=== PATIENT | female | born 1970 | race Caucasian/White ===

== ENCOUNTER 2019-02-06 10:03 | Inpatient (IN) ==
[2019-02-06 11:15] LABS: BASO# 0.02 X1000 (0.0-0.2); BASO% 0.2 % (0.0-0.8); EOS# 0.01 X1000 (0.0-0.7); EOS% 0.1 % (0.0-10.0); HEMATOCRIT 32.4 % (37.0-47.0); HEMOGLOBIN 9.6 g/dL (12.0-16.0); IMM GRAN# 0.05 X1000 (0.0-0.04); IMM GRAN% 0.5 % (0.0-0.5); LYMPH# 1.04 X1000 (1.2-3.4); LYMPH% 9.9 % (20.5-51.1); MCH 27.6 PG (27-31); MCHC 29.6 g/dL (33-37); MCV 93.1 FL (81-99); MONO# 0.51 X1000 (0.11-0.59); MONO% 4.9 % (1.7-9.3); MPV 8.5 FL (7.4-10.4); NEUT# 8.85 X1000 (1.4-6.5); NEUT% 84.4 % (42.2-75.2); PLT 487 X1000 (130-400); RBC 3.48 XMIL (4.2-5.4); WBC 10.48 X1000 (4.8-10.8)
--- NOTE | 2019-02-06 11:18 | EKG Report ---
Test Performed on : 02/06/2019 10:40:53 AM Test Reason : ams Blood Pressure : / mmHG Vent. Rate : 075 BPM Atrial Rate : 075 BPM P-R Int : 146 ms QRS Dur : 088 ms QT Int : 408 ms P-R-T Axes : 056 -43 024 degrees QTc Int : 455 ms Normal sinus rhythm. Left axis deviation Possible Anterior infarct , age undetermined Abnormal ECG No previous ECGs available Unconfirmed Result
[2019-02-06] MEDS ORDERED: NS 1,000 ML IV ONE (11:20)
[2019-02-06] MEDS ORDERED: ZOFRAN IV ONE (11:20)
[2019-02-06 11:29] LABS: URINE SOURCE CATH
[2019-02-06 11:31] LABS: INR 1.24; PROTIME 15.8 Seconds (11.0-16.0)
[2019-02-06 11:31] LABS: BILIRUBIN URINE SMALL (NEGATIVE); BLOOD URINE MODERATE (NEGATIVE); COLOR YELLOW; GLUCOSE URINE NEGATIVE (NEGATIVE); KETONE URINE TRACE mg/dL (NEGATIVE); LEUKOCYTES URINE LARGE (NEGATIVE); NITRITE URINE NEGATIVE (NEGATIVE); PH URINE 8.5; PROTEIN URINE 70 mg/dL (NEGATIVE); SP GRAVITY URINE 1.022; TURBIDITY URINE HAZY (CLEAR); UROBILINOGEN URINE 3 mg/dL (NORMAL)
[2019-02-06 11:32] LABS: PTT 29.4 Seconds (22.3-41.8)
[2019-02-06 11:33] LABS: AGAP 14; ALB/GLOB RATIO 1.2; ALBUMIN 2.6 g/dL (3.5-5.0); ALKALINE PHOSPHATASE 156 U/L (32-104); BUN 11 mg/dL (8-22); CHLORIDE 100 mmol/L (98-107); CK PROFILE 22 U/L (24-173); COSMO 282; CREATININE 0.4 mg/dL (0.5-0.9); ESTIMATED GFR > 60; GLUCOSE 91 mg/dL (70-104); GOT 31 U/L (10-30); GPT 13 U/L (10-36); POTASSIUM 2.7 mmol/L (3.5-5.1); SODIUM 142 mmol/L (136-145); TCO2 28 mmol/L (25-35); TOTAL BILIRUBIN 0.23 mg/dL (0.20-1.00); TOTAL PROTEIN 4.8 g/dL (6.3-8.3)
--- NOTE | 2019-02-06 11:35 | Diag Imaging Result Doc PS360 ---
CHEST-PORTABLE - 02/06/2019 INDICATION: ams COMPARISON: 11/06/2014 FINDINGS: The lungs are normally expanded and clear. Heart size and mediastinal contours are normal. No pneumothorax or pleural effusion. There is a shunt catheter tubing along the right body extending down into the abdomen. IMPRESSION: Negative exam. Electronically signed by Cullen Arteaga 02/06/2019 11:33 AM
[2019-02-06 11:39] LABS: UR EPITHELIAL CELLS <10 /HPF (<10); URINE BACTERIA 4+ /HPF; URINE RBC <10 /HPF (<10); URINE WBC TNTC /HPF (<10)
--- NOTE | 2019-02-06 12:28 | Diag Imaging Result Doc PS360 ---
EXAM: CT HEAD W/O CONTRAST INDICATION: Head injury TECHNIQUE: This exam was performed using automated exposure control, adjustment of mA or kV according to patient size, and/or use of iterative reconstruction technique. COMPARISON: None. FINDINGS: There is a large anterior craniotomy defect on the left. There is a vascular aneurysm coil in the region of the suprasellar cistern on the left. There is extensive left hemispheric encephalomalacia involving the temporal, frontal, and occipital lobes. There is milder right frontal lobe encephalomalacia. There is a right posterior approach CP shunt catheter. The tip is in the anterior aspect of the right lateral ventricle. There is no evidence of hydrocephalus. There is no definite acute infarct given the limited sensitivity of CT versus MRI. There is no discrete intracranial mass, mass effect, or intracranial hemorrhage. Aside from the postsurgical changes, the calvaria is intact. Surrounding soft tissues and bony structures are grossly unremarkable, otherwise. IMPRESSION: Extensive chronic changes as detailed above. No definite acute intracranial pathology by CT. Electronically signed by German Abbott 02/06/2019 12:26 PM
--- NOTE | 2019-02-06 12:29 | Diag Imaging Result Doc PS360 ---
EXAM: CT ABD/PELVIS W/IV CONT ONLY INDICATION: epigastric abdo pain TECHNIQUE: This exam was performed using automated exposure control, adjustment of mA or kV according to patient size, and/or use of iterative reconstruction technique. COMPARISON: None. FINDINGS: There is moderate to extensive hepatic steatosis. The gallbladder, spleen, and pancreas are unremarkable. There is mild low dense adrenal gland thickening likely representing underlying adenomas. There are a few tiny renal cysts bilaterally. There is no evidence of hydronephrosis. The kidneys are unremarkable, otherwise. There is a very large calcified stone in the lumen of the urinary bladder on the right measuring up to 2.8 cm axially. This is likely been in the bladder for some time. The urinary bladder is unremarkable, otherwise. There has been a prior hysterectomy. There is a [employer] shunt catheter with the tip in the left lower quadrant. There are no abnormal fluid collections identified. There is mild uncomplicated diverticulosis coli. The appendix is normal. There is abundant stool in the colon suggesting possible mild to moderate constipation. There is no obstructive bowel pattern. The antrum of the stomach in the duodenal bulb appear mildly thickened. Consider gastritis/duodenitis. Peptic ulcer disease is also a consideration. The remainder of the GI tract is grossly unremarkable. No free abdominal gas is appreciated. There is moderate distal aortic atherosclerotic calcification. There are lumbar degenerative changes. There is no evidence of acute osseous abnormality. IMPRESSION: 1.Suggestion of subtle thickening involving the antrum of the stomach and the duodenal bulb. Consider gastritis/duodenitis or peptic ulcer disease. 2.Hepatic steatosis. 3.Very large urinary bladder stone noted incidentally. 4.Possible constipation. Electronically signed by German Abbott 02/06/2019 12:26 PM
[2019-02-06] MEDS ORDERED: POTASSIUM CHLORIDE 40 MEQ in NS 1,000 ML IV ONE (12:56)
[2019-02-06] MEDS ORDERED: PROTONIX IV ONE (12:56)
--- NOTE | 2019-02-06 12:56 | PROVIDER DOCUMENTATION ---
This chart was entered by Juliana Epps Scribe, acting as scribe for Jorge Cancino MD. HPI-General Adult - General Chief Complaint: Altered Mental Status Stated Complaint: AMS, N/V Time Seen by Provider: 02/06/19 11:04 Source: patient, family (mother) Allergies/Adverse Reactions: Patient Allergies Allergy/AdvReac Type Severity Reaction Status Date / Time latex Allergy RASH Verified 11/17/17 15:58 morphine Allergy RASH Verified 11/17/17 15:58 Home Medications: Home Medication List Medication Instructions Recorded Confirmed Last Taken Type Amlodipine [Norvasc] 10 mg PO DAILY 02/06/19 02/06/19 Unknown History Diclofenac Potassium 50 mg PO Q8H PRN PRN 02/06/19 02/06/19 Unknown History Methocarbamol 750 mg PO TID 02/06/19 02/06/19 Unknown History Pramipexole Di-HCl [Mirapex] 1 mg PO DAILY 02/06/19 02/06/19 Unknown History Quetiapine Fumarate [Seroquel] 300 mg PO HS 02/06/19 02/06/19 Unknown History Sertraline HCl [Zoloft] 150 mg PO DAILY 02/06/19 02/06/19 Unknown History - History of Present Illness -Gen Adult Nature of Presenting Problems: Patient is a 48 year old female who presents to the ED with multiple complaints. States symptoms of nausea, vomiting, loss of appetite, weakness, fatigue, weight loss, diarrhea, confusion, dysuria and urinary frequency. Reports sympto ms started 1 week ago. Mother states patient had a brain aneurysm 2 years ago. Location of Pain/Injury: reports: none Quality of Pain: reports: none Severity: reports: mild Onset/Duration: reports: 1 week ago Timing: reports: still present Context/Activities at Onset: reports: light activity Associated Symptoms: reports: diarrhea, fatigue, genitourinary problems (dysuria and frequency), loss of appetite, nausea, vomiting, weakness, other (weight loss and confusion) Similar Symptoms Previously?: Yes Recently seen or treated by another doctor?: No Review of Systems - Adult - REVIEW OF SYSTEMS - ADULT Constitutional: reports: see HPI, fatique, weight loss. denies: chills, fever Eyes: reports: no symptoms reported Ears, Nose, Mouth & Throat: reports: no symptoms reported Cardiovascular: reports: no symptoms reported Respiratory: reports: no symptoms reported Gastrointestinal: reports: see HPI, nausea, poor appetite, vomiting Genitourinary: reports: see HPI, dysuria, frequency. denies: hematuria Musculoskeletal: reports: see HPI, muscle weakness. denies: back pain, neck pain Integumentary: reports: no symptoms reported Neurological: reports: see HPI, other (AMS - confusion). denies: headach e/migraines, syncope Psychiatric: reports: no symptoms reported Endocrine: reports: no symptoms reported Hematologic/Lymphatic: reports: no symptoms reported Allergic/Immunologic: reports: no symptoms reported All Other Systems: Reviewed and Negative Past History - Adult - PAST MEDICAL HISTORY-ADULT Review of Records: reports: Old Records Reviewed, Nursing Assessment Review, Medications Reviewed, Social history reviewed & non-contributory. Major Childhood Illnesses: reports: denies history Cardiovascular: reports: HTN Respiratory: reports: asthma Gastrointestinal: reports: denies history Obstetrical/Gynecological: reports: denies history Genitourinary: reports: denies history Musculoskeletal: reports: denies history, other fractures, orthopedic injury Neurological: reports: other (brain aneurysm 2017) Psychiatric: reports: denies history Endocrine/Immune: reports: denies history Other Conditions: reports: denies history - PRIOR SURGERIES/PROCEDURES Surgical/Procedure History: reports: hysterectomy, tonsillectomy, orthopedic (extremity) - IMMUNIZATION STATUS Childhood Immunizations: See Nurse Assessment Flu Vaccine: See Nurse Assessment - FAMILY HISTORY Family History: reviewed, not pertinent - SOCIAL HISTORY Smoking: cigarettes, greater than 1 pack/day Provider spent 3-5 mins advising pt. on dangers of tobacco.: Discussed manners to quit use, and f/u contacts for add'l counseling. Substance Use: denies Living Situation: family Physical Exam-General - PHYSICAL EXAM-ADULT Initial Vital Signs Reviewed: Yes - CONSTITUTIONAL General Appearance: alert, no apparent distress, thin. negative: lethargic - HEAD, EARS, NOSE, MOUTH & THROAT HENMT: normocephalic/atraumatic, other (dry mucous membranes). negative: angioedema - RESPIRATORY Respiratory: chest non-tender, lungs clear, normal breath sounds. negative: crackles, rhonchi - CARDIOVASCULAR Cardiovascular: normal peripheral pulses, regular rate, rhythm. negative: tachycardia - GASTROINTESTINAL (ABDOMEN) Abdominal Exam: normal bowel sounds, soft, tenderness (epigastric). negative: distended - MUSCULOSKELETAL Back Exam: CVA tenderness (right). negative: ecchymosis, vertebral tenderness Extremity: normal inspection. negative: deformity, erythema - SKIN Integumentary: normal turgor, warm/dry, pallor. negative: jaundice - NEUROLOGIC Neurologic: other (mild confusion). negative: aphasia, facial droop - PSYCHIATRIC Psych/Mental Status: other (mild confusion). negative: anxious, paranoid Progress - PLAN OF CARE/RESULTS Progress/Plan/Lab Results: Vital Signs - 8 hr 02/06/19 10:05 02/06/19 11:01 Temperature 98.9 F Pulse Rate 81 88 Respiratory Rate 20 18 Blood Pressure 121/81 125/94 O2 Sat by Pulse Oximetry 96 99 Orders Category Date Time Status Cardiac Monitoring DIRECTED Care 02/06/19 11:02 Active Finger Stick Blood Sugar (ED) DIRECTED Care 02/06/19 11:02 Active Saline Loc NOW Care 02/06/19 11:02 Active CHEST-PORTABLE [RAD] Stat Exams 02/06/19 11:[address] HEAD W/O CONTRAST [CT] Stat Exams 02/06/19 11:03 Ordered ALCOHOL BLOOD Stat Lab 02/06/19 10:40 Received CBC WITH ELECTRONIC DIFF [HEME] Stat Lab 02/06/19 10:40 Results CK PROFILE [SP CHEM] Stat Lab 02/06/19 10:40 Received COMPREHENSIVE METABOLIC PANEL [CHEM] Stat Lab 02/06/19 10:40 Received PROTIME WITH INR [COAG] Stat Lab 02/06/19 10:40 Received PTT [COAG] Stat Lab 02/06/19 10:40 Received TROPONIN T Stat Lab 02/06/19 10:40 Received Altered Mental Status Stat Oth 02/06/19 11:02 Ordered EKG [EKG] Stat Ther 02/06/19 11:02 Ordered Result Diagrams: 02/06/19 10:40 02/06/19 10:40 - EKG 1 Time of EKG reading by physician:: 10:40 EKG Read and Signed by:: Jorge Cancino EKG Interpretation (*Must complete 3 of following elements*): Abnormal Rate: 75 Rhythm: normal sinus rhythm [place]: left MO Interval: normal Comments: possible anterior infarct, age undetermined - XRAY 1 XRAY Study: Chest Impression: See EMR Report ( CHEST-PORTABLE - 02/06/2019 INDICATION: ams COMPARISON: 11/06/2014 FINDINGS: The lungs are normally expanded and clear. Heart size and mediastinal contours are normal. No pneumothorax or pleural effusion. There is a shunt catheter tubing along the right body extending down into the abdomen. IMPRESSION: Negative exam. Electronically signed by Cullen Arteaga 02/06/2019 11:33 AM 02/06/19 1133 Interpreting Physician: Cullen Arteaga MD Dictated Date/Time: 02/06/19 1131 cc: Jorge Cancino MD; None,PCP) - CT/MRI 1 CT Study: Abdomen, Pelvis Impression: See EMR Report ( EXAM: CT ABD/PELVIS W/IV CONT ONLY INDICATION: epigastric abdo pain TECHNIQUE: This exam was performed using automated exposure control, adjustment of mA or kV according to patient size, and/or use of iterative reconstruction technique. COMPARISON: None. FINDINGS: There is moderate to extensive hepatic steatosis. The gallbladder, spleen, and pancreas are unremarkable. There is mild low dense adrenal gland thickening likely representing underlying adenomas. There are a few tiny renal cysts bilaterally. There is no evidence of hydronephrosis. The kidneys are unremarkable, otherwise. There is a very large calcified stone in the lumen of the urinary bladder on the right measuring up to 2.8 cm axially. This is likely been in the bladder for some time. The urinary bladder is unremarkable, otherwise. There has been a prior hysterectomy. There is a [employer] shunt catheter with the tip in the left lower quadrant. There are no abnormal fluid collections identified. There is mild uncomplicated diverticulosis coli. The appendix is normal. There is abundant stool in the colon suggesting possible mild to moderate constipation. There is no obstructive bowel pattern. The antrum of the stomach in the duodenal bulb appear mildly thickened. Consider gastritis/duodenitis. Peptic ulcer disease is also a consideration. The remainder of the GI tract is grossly unremarkable. No free abdominal gas is appreciated. There is moderate distal aortic atherosclerotic calcification. There are lumbar degenerative changes. There is no evidence of acute osseous abnormality. IMPRESSION: 1.Suggestion of subtle thickening involving the antrum of the stomach and the duodenal bulb. Consider gastritis/duodenitis or peptic ulcer disease. 2.Hepatic steatosis. 3.Very large urinary bladder stone noted incidentally. 4.Possible constipation. Electronically signed by German Abbott 02/06/2019 12:26 PM 02/06/19 1226 Interpreting Physician: German Abbott MD Dictated Date/Time: 02/06/19 1201 cc: Jorge Cancino MD; None,PCP) 2 CT Study: Head Impression: See EMR Report ( EXAM: CT HEAD W/O CONTRAST INDICATION: Head injury TECHNIQUE: This exam was performed using automated exposure control, adjustment of mA or kV according to patient size, and/or use of iterative reconstruction technique. COMPARISON: None. FINDINGS: There is a large a nterior craniotomy defect on the left. There is a vascular aneurysm coil in the region of the suprasellar cistern on the left. There is extensive left hemispheric encephalomalacia involving the temporal, frontal, and occipital lobes. There is milder right frontal lobe encephalomalacia. There is a right posterior approach CP shunt catheter. The tip is in the anterior aspect of the right lateral ventricle. There is no evidence of hydrocephalus. There is no definite acute infarct given the limited sensitivity of CT versus MRI. There is no discrete intracranial mass, mass effect, or intracranial hemorrhage. Aside from the postsurgical changes, the calvaria is intact. Surrounding soft tissues and bony structures are grossly unremarkable, otherwise. IMPRESSION: Extensive chronic changes as detailed above. No definite acute intracranial pathology by CT. Electronically signed by German Abbott 02/06/2019 12:26 PM 02/06/19 1226 Interpreting Physician: German Abbott MD Dictated Date/Time: 02/06/19 1220 cc: Jorge Cancino MD; None,PCP) - CONSULTS/PCP/HOSPITALIST Notification #1 *Consult/PCP/Hospitalist*: Shelly Mclean RELIEF MATE for hospitalist Time Discussed: 12:54 Consult Disposition: Will see in ED, Admit Departure - Departure Date of Disposition Decision: 02/06/19 Time of Disposition Decision: 12:54 DIAGNOSIS: Gastritis, UTI (urinary tract infection), Hypokalemia, Constipation, Anemia, Bladder stone Disposition: ADMITTED INPATIENT 09 Certified Medical Emergency: Emergent Condition: Fair Referrals and Follow-Ups: None,PCP [Primary Care Provider] - - Critical Care Note This patient required my direct & personal management of CC.: No Attestation - Physician/ CARINA Attestation Patient care was provided by Advanced Practice Provider:: No The physician spent face to face time with patient:: Yes Advanced Practice Provider documentation review:: Supervising physician onsite and consulted in the evaluation and care of this patient. The physician did have a face to face encounter with the patient. This chart was documented by the indicated scribe, (Juliana Epps, Hannah) and accurately reflects the services I performed and decisions made by me, Jorge Cancino MD, as attested by the provider's signature.
[2019-02-06] MEDS ORDERED: ROCEPHIN 1 GM in NS 50 ML IV ONE (12:58)
[2019-02-06] MEDS: SODIUM CHLORIDE 0.9% INJ ONE (13:17)
[2019-02-06] MEDS ORDERED: SODIUM CHLORIDE 0.9% INJ ONE (13:39)
[2019-02-06] MEDS ORDERED: G.I. COCKTAIL PO ONE (14:04)
[2019-02-06] MEDS ORDERED: FLU VACCINE IM ONE (15:08)
[2019-02-06] MEDS ORDERED: PREVNAR 13 IM ONE (15:08)
[2019-02-06] MEDS: MIRALAX PO SCH (17:22)
[2019-02-06] MEDS: DULCOLAX PR SCH ×2 (17:22→22:00)
[2019-02-06] MEDS: ZOFRAN IV PRN (21:58)
--- NOTE | 2019-02-06 23:13 | HISTORY AND PHYSICAL ---
CHIEF COMPLAINT: Nausea, vomiting, diarrhea, confusion, dysuria. HISTORY OF PRESENT ILLNESS: This is a 48-year-old female with a history of hypertension, gastroesophageal reflux disease, and a right brain aneurysm status post surgery. She presents to the emergency room with her mother complaining of 1 week of nausea, vomiting, just generalized weakness and fatigue with some diarrhea, dysuria, urinary frequency, and increasing confusion. They denied any chest pain, palpitations, fevers or chills, any black or bloody stools or vomitus. PAST MEDICAL HISTORY: 1. Hypertension. 2. Gastroesophageal reflux disease. 3. Brain aneurysm in 2017, status post surgical repair. PAST SURGICAL HISTORY: 1. Hysterectomy. 2. Tonsillectomy. 3. Brain surgery x3. SOCIAL HISTORY: She smokes about a pack a day. Denies alcohol or illicit drug use. ALLERGIES: 1. Latex. 2. Morphine. HOME MEDICATIONS: A list will be obtained by the nursing staff and once verified, will review and restart as appropriate. REVIEW OF SYSTEMS: Discussed with the patient with pertinent positives stated in the HPI. She denied any syncope or dizziness, any chest pain or palpitations, shortness of breath, cough, fever, chills, any black or bloody vomitus or stools, any hematuria. PHYSICAL EXAMINATION: GENERAL: This is a 48-year-old female who is lying on the stretcher in the emergency room in no distress. VITAL SIGNS: Blood pressure is 126/90 with a heart rate of 92, respirations are 18, temperature is 98.2 degrees oral with room air saturations 95%. HEENT: Head is normocephalic, atraumatic. Mucous membranes are moist. NECK: Supple with trachea midline. CARDIOVASCULAR: Regular rate and rhythm. S1 and S2 are appreciated. She has no lower extremity edema with peripheral pulses palpable x4 extremities. PULMONARY: Breath sounds are clear. No increased work of breathing noted. Chest rises and falls symmetric with respiration. GASTROINTESTINAL: Abdomen is soft, nondistended, with bowel sounds in all 4 quadrants. She does have some epigastric tenderness. GENITOURINARY: She has right CVA tenderness. Denies any suprapubic tenderness. SKIN: Pale warm and dry. NEUROLOGIC: She does have some mild confusion. At present, her mother states she is back to her baseline. LABORATORY DATA: WBC is 10.4 with hemoglobin 9.6, hematocrit 32.4, platelets of 487,000. Sodium 142, potassium 2.7, BUN 11, creatinine 0.4 with a glucose of 91. Urinalysis is positive for too numerous to count white blood cells, large leukocytes with 4+ bacteria, less than 10 microscopic red blood cells or epithelial cells. This is a catheter specimen. Blood alcohol is none detected. Urine culture is pending. IMAGING: CT of the abdomen and pelvis reveals suggestion of subtle thickening of the antrum of the stomach and the duodenal bulb; consider gastritis, duodenitis or peptic ulcer disease; hepatic steatosis; very large urinary bladder stone at 2.8 cm ax[address] with constipation. CT of the head reveals extensive chronic changes, a large anterior craniotomy defect on the left; vascular aneurysm coil in the cistern on the left; extensive left hemispheric encephalomalacia involving the temporal, frontal, and occipital lobes with mild frontal lobe encephalomalacia. There is a right posterior CP shunt catheter. The tip is in the aspect of the right lateral ventricle. There is no evidence of hydrocephalus. No definite acute intracranial pathology. Chest x-ray reveals negative exam. ASSESSMENT AND PLAN: 1. Urinary tract infection. 2. Bladder stone. 3. Hypokalemia. 4. History of hypertension. 5. Gastritis versus duodenitis versus peptic ulcer disease. 6. Anemia. 7. Constipation. 8. History of brain aneurysm with a ventriculoperitoneal shunt. PLAN: The patient will be admitted to the medical floor. She will be placed on telemetry. place a Herrera catheter to assure bladder decompression. Rocephin for antibiotics and further antibiotics will be culture driven. MiraLAX with Dulcolax suppositories gentle hydration. strict I's and O's, neuro checks every shift. clear liquid diet and we can advance as tolerated. consult Physical Therapy. consult Dr. Chappell regarding a bladder stone. CBC, CMP, magnesium in the morning. identify her home medications and continue these as appropriate. Protonix 40 mg IV b.i.d. Plan was discussed with Dr. Ruelas. Further treatments pending hospital course. Dictated by SUZETTE Woodall for Travis Ruelas MD cc: SUZETTE Woodall MD Pt examined; seen with suzette: pt has bladder stone and UTI; also with some degree of encephalopathy likely related to UTI and likely delirium; we will treat and UTI and follow closely; her abdominal exam and neurological exam is unremarkable; other parts of the plan as described above. BR[employer]AN [employer]
[2019-02-07] MEDS: NS 1,000 ML IV SCH ×3 (05:22→23:42)
[2019-02-07] MEDS: DULCOLAX PR SCH (05:46)
[2019-02-07 07:28] LABS: BASO# 0.03 X1000 (0.0-0.2); BASO% 0.4 % (0.0-0.8); EOS# 0.07 X1000 (0.0-0.7); EOS% 0.9 % (0.0-10.0); HEMATOCRIT 32.4 % (37.0-47.0); HEMOGLOBIN 9.6 g/dL (12.0-16.0); IMM GRAN# 0.02 X1000 (0.0-0.04); IMM GRAN% 0.3 % (0.0-0.5); LYMPH# 1.05 X1000 (1.2-3.4); LYMPH% 14.1 % (20.5-51.1); MCH 27.7 PG (27-31); MCHC 29.6 g/dL (33-37); MCV 93.6 FL (81-99); MONO# 0.48 X1000 (0.11-0.59); MONO% 6.4 % (1.7-9.3); MPV 8.4 FL (7.4-10.4); NEUT# 5.81 X1000 (1.4-6.5); NEUT% 77.9 % (42.2-75.2); PLT 498 X1000 (130-400); RBC 3.46 XMIL (4.2-5.4); RDW 19.7 % (11.5-14.5); WBC 7.46 X1000 (4.8-10.8)
[2019-02-07 07:49] LABS: AGAP 12; ALB/GLOB RATIO 1.2; ALBUMIN 2.9 g/dL (3.5-5.0); ALKALINE PHOSPHATASE 154 U/L (32-104); BUN 6 mg/dL (8-22); CALCIUM 7.9 mg/dL (8.8-10.2); CHLORIDE 103 mmol/L (98-107); COSMO 276; CREATININE 0.5 mg/dL (0.5-0.9); ESTIMATED GFR > 60; GLUCOSE 83 mg/dL (70-104); GOT 25 U/L (10-30); GPT 15 U/L (10-36); MAGNESIUM 1.8 mg/dL (1.5-2.7); SODIUM 140 mmol/L (136-145); TCO2 25 mmol/L (25-35); TOTAL BILIRUBIN 0.25 mg/dL (0.20-1.00); TOTAL PROTEIN 5.3 g/dL (6.3-8.3)
[2019-02-07] MEDS: MIRALAX PO SCH (09:37)
[2019-02-07] MEDS: PROTONIX IV SCH (12:07)
[2019-02-07] MEDS: SODIUM CHLORIDE 0.9% INJ ONE (12:08)
[2019-02-07] MEDS: ROCEPHIN 1 GM in NS 50 ML IV SCH (12:08)
--- NOTE | 2019-02-07 12:36 | CONSULTATION ---
DATE OF CONSULTATION: 02/07/2019 ATTENDING AND REFERRING PHYSICIAN: Hospitalist. CHIEF COMPLAINT: Irritative voiding symptoms. HISTORY OF PRESENT ILLNESS: This 48-year-old female, was admitted with nausea, vomiting, and mental status changes according to her mother. The patient states she is feeling much better this morning. She states she has a several-month history of starting to void and the urine stopping. She then has significant spasms. She states that before several months ago. She had no problems voiding. She had no problems with urinary infections. She has had no hematuria. She states she may have had kidney stones nearly 30 years ago, but no problems since. She denies any previous urologic surgery. PAST MEDICAL HISTORY: Hypertension, asthma/COPD, brain aneurysm, and gastroesophageal reflux disease. CURRENT MEDICATIONS: Documented on the chart. PAST SURGICAL HISTORY: Tonsillectomy, wisdom teeth extraction, hysterectomy, ankle surgery, and craniotomy x3 as a result from an intracranial bleed. SOCIAL HISTORY: Cigarettes, a pack-a-day for over 30 years. ETOH use is negative. ALLERGIES: She is allergic to morphine and latex. REVIEW OF SYSTEMS: She states normally she does well. She states she is very independent. She denies any problems with diabetes, heart disease, or recent pulmonary problems. PHYSICAL EXAMINATION: General: A normally developed, well-nourished, age apparent, white female, oriented in all ways and cooperative. HEENT: Examination reveals a defect in the cranium in the left temporal and parietal area, otherwise normal. Lungs: Clear, with scattered rhonchi. Cardiovascular: Regular rate and rhythm. Holosystolic murmur. Abdomen: Flat, soft, nontender. No hepatosplenomegaly or masses. Normal bowel sounds. Genitourinary: Deferred until surgery. Extremities: No clubbing, cyanosis, or edema. Neurologic: No focal deficits. LABORATORY EVALUATION: White count 7.46, hemoglobin 9.6, hematocrit 32.4, and platelets are 498,000. Serum electrolytes has a potassium of 2.7, otherwise normal. BUN 11, creatinine 0.4. CT scan reveals an approximate 3 cm stone inside the bladder, otherwise normal urinary system. IMPRESSION: 1. Status post craniotomy for brain aneurysm. 2. An approximate 3 centimeter bladder stone. 3. Irritative voiding symptoms that appear to be getting worse secondary to the stone. 4. Probable urinary tract infection. Culture pending. RECOMMENDATIONS: 1. Cystolitholapaxy. This could be done on Tuesday if still in the hospital. 2. If she is discharged we will see in the clinic next week to schedule procedure is an outpatient. 3. Check urine for culture and sensitivities. Thank you for this consultation. cc: Alphonso Chappell MD
[2019-02-07] MEDS ORDERED: CATAFLAM PO PRN (12:51)
--- NOTE | 2019-02-07 15:06 | PROGRESS NOTE ---
DATE: 02/07/2019 SUBJECTIVE: The patient reports breathing fine. Actually, she reports feeling very hungry. Denies any nausea or vomiting. OBJECTIVE: Vital Signs: Temperature 98.2 degrees, heart rate 87, respiratory rate 14, blood pressure 121/83, O2 saturation 95% on room air. General: This is a 48-year-old female, lying in bed in no acute distress. Cardiovascular: S1, S2 heard. No murmurs, gallops, or rubs. Regular rate and rhythm. Respiratory: Clear bilaterally to auscultation. No work of breathing or using accessory muscles. Abdomen: Soft, nontender to palpation. Bowel sounds present. No organomegaly. Extremities: No clubbing, cyanosis, or edema. Peripheral pulses present in both legs. Neurological: The patient is alert and oriented x3. Moves all 4 extremities. LABORATORY DATA: Reviewed. ASSESSMENT AND PLAN: 1. Urinary tract infection/bladder stone. The patient will continue with ceftriaxone. Will wait for results of urine culture. I have talked with Dr. Chappell, and he is planning to do cystoscopy with stone removal this Tuesday. Will follow recommendations. 2. Hypokalemia. Will provide 60 mEq of potassium today. 3. Hypertension. Blood pressure is under control. Will continue with the same management. 4. Gastritis versus duodenitis. Will continue with Protonix. 5. History of brain aneurysm with ventriculoperitoneal shunt. Aware. 6. Disposition. Will continue to monitor this patient closely. Will restart home medications for her. cc: Tico Downey MD
[2019-02-07] MEDS: ROBAXIN PO SCH ×2 (15:33→20:34)
[2019-02-07] MEDS: SEROQUEL PO SCH (20:34)
[2019-02-08] MEDS: NS 1,000 ML IV SCH ×2 (00:52→16:46)
[2019-02-08 07:18] LABS: AGAP 9; ALBUMIN 2.3 g/dL (3.5-5.0); BUN 8 mg/dL (8-22); CALCIUM 7.6 mg/dL (8.8-10.2); CHLORIDE 108 mmol/L (98-107); COSMO 278; CREATININE 0.4 mg/dL (0.5-0.9); ESTIMATED GFR > 60; GLUCOSE 95 mg/dL (70-104); PHOSPHORUS 2.2 mg/dL (2.7-4.5); POTASSIUM 2.8 mmol/L (3.5-5.1); SODIUM 140 mmol/L (136-145); TCO2 23 mmol/L (25-35)
[2019-02-08 07:47] LABS: BASO# 0.04 X1000 (0.0-0.2); BASO% 0.5 % (0.0-0.8); EOS# 0.18 X1000 (0.0-0.7); EOS% 2.4 % (0.0-10.0); HEMATOCRIT 29.4 % (37.0-47.0); HEMOGLOBIN 8.6 g/dL (12.0-16.0); IMM GRAN# 0.04 X1000 (0.0-0.04); IMM GRAN% 0.5 % (0.0-0.5); LYMPH# 1.24 X1000 (1.2-3.4); LYMPH% 16.4 % (20.5-51.1); MCH 27.5 PG (27-31); MCHC 29.3 g/dL (33-37); MCV 93.9 FL (81-99); MONO# 0.34 X1000 (0.11-0.59); MONO% 4.5 % (1.7-9.3); MPV 8.7 FL (7.4-10.4); NEUT# 5.72 X1000 (1.4-6.5); NEUT% 75.7 % (42.2-75.2); PLT 438 X1000 (130-400); RBC 3.13 XMIL (4.2-5.4); RDW 19.5 % (11.5-14.5); WBC 7.56 X1000 (4.8-10.8)
[2019-02-08] MEDS: ZOLOFT PO SCH (08:15)
[2019-02-08] MEDS: MIRALAX PO SCH (08:16)
[2019-02-08] MEDS: MIRAPEX PO SCH (08:16)
[2019-02-08] MEDS: ROBAXIN PO SCH ×3 (08:16→20:49)
[2019-02-08] MEDS: NORVASC PO SCH (08:16)
[2019-02-08] MEDS ORDERED: SODIUM PHOSPHATE 35 MMOL in NS 250 ML IV ONE (10:14)
[2019-02-08] MEDS: POTASSIUM CHLORIDE 60 MEQ in NS 500 ML IV SCH ×2 (11:22→19:31)
--- NOTE | 2019-02-08 11:29 | PROGRESS NOTE ---
DATE: 02/08/2019 SUBJECTIVE: The patient reports breathing okay. Reports some muscle cramping. She is eating okay. OBJECTIVE: Vital Signs: Temperature 97.7 degrees, heart rate 80, respiratory rate 20, blood pressure 116/81, O2 saturation 100% on room air. General: This is a 48-year-old female, lying in bed in no acute distress. Cardiovascular: S1, S2 heard. No murmurs, gallops, or rubs. Regular rate and rhythm. Respiratory: Clear bilaterally to auscultation. No work of breathing or using accessory muscles. Abdomen: Soft. Nontender to palpation. Bowel sounds present. No organomegaly. Extremities: No clubbing, cyanosis, or edema. Peripheral pulses present in both legs. Neurological: The patient is alert and oriented x3. Moves all 4 extremities. LABORATORY DATA: Reviewed. Potassium is very low at 2.8. ASSESSMENT AND PLAN: 1. Urinary tract infection/bladder stone. The patient continues to be on ceftriaxone. Urine culture is still pending. Dr. Chappell is going to perform cystoscopy with stone removal tomorrow. Will follow recommendations. 2. Hypokalemia. Potassium persists to be very low, so will provide potassium intravenously, and will check BMP tomorrow. 3. Hypertension. Blood pressure is under control. Will continue with the same management. 4. History of brain aneurysm with ventriculoperitoneal shunt. Aware. Will continue to monitor. 5. Disposition. Will continue with current antibiotic management. Will replenish potassium, and Urology will perform cystoscopy tomorrow. cc: Tico Downey MD
[2019-02-08] MEDS ORDERED: TYLENOL PO PRN (12:57)
[2019-02-08] MEDS: MORPHINE IV PRN (15:24)
[2019-02-08] MEDS: ZOFRAN IV PRN (15:34)
[2019-02-08] MEDS: PROTONIX IV SCH (15:35)
[2019-02-08] MEDS: ROCEPHIN 1 GM in NS 50 ML IV SCH (15:35)
[2019-02-08] MEDS: SEROQUEL PO SCH (20:48)
[2019-02-09] MEDS: NS 1,000 ML IV SCH (03:02)
[2019-02-09] MEDS ORDERED: VERSED ONE (06:34)
[2019-02-09] MEDS ORDERED: DIPRIVAN 1% ONE (06:35)
[2019-02-09] MEDS ORDERED: FENTANYL ONE (06:35)
[2019-02-09 07:03] LABS: BASO# 0.04 X1000 (0.0-0.2); BASO% 0.5 % (0.0-0.8); EOS# 0.21 X1000 (0.0-0.7); EOS% 2.7 % (0.0-10.0); HEMATOCRIT 32.2 % (37.0-47.0); HEMOGLOBIN 9.3 g/dL (12.0-16.0); IMM GRAN# 0.04 X1000 (0.0-0.04); IMM GRAN% 0.5 % (0.0-0.5); LYMPH# 1.04 X1000 (1.2-3.4); LYMPH% 13.5 % (20.5-51.1); MCH 27.8 PG (27-31); MCHC 28.9 g/dL (33-37); MCV 96.1 FL (81-99); MONO# 0.33 X1000 (0.11-0.59); MONO% 4.3 % (1.7-9.3); MPV 8.7 FL (7.4-10.4); NEUT# 6.03 X1000 (1.4-6.5); NEUT% 78.5 % (42.2-75.2); PLT 413 X1000 (130-400); RBC 3.35 XMIL (4.2-5.4); RDW 19.8 % (11.5-14.5); WBC 7.69 X1000 (4.8-10.8)
[2019-02-09 07:19] LABS: AGAP 16; ALBUMIN 2.6 g/dL (3.5-5.0); BUN 7 mg/dL (8-22); CHLORIDE 110 mmol/L (98-107); COSMO 278; CREATININE 0.4 mg/dL (0.5-0.9); ESTIMATED GFR > 60; GLUCOSE 79 mg/dL (70-104); PHOSPHORUS 1.9 mg/dL (2.7-4.5); POTASSIUM 4.6 mmol/L (3.5-5.1); SODIUM 141 mmol/L (136-145); TCO2 15 mmol/L (25-35)
--- NOTE | 2019-02-09 09:29 | OPERATIVE NOTE ---
PROCEDURE DATE: 02/09/2019 SURGEON: Dr. Alphonso Chappell. PREOPERATIVE DIAGNOSIS: Large bladder stone. POSTOPERATIVE DIAGNOSIS: Large bladder stone. PROCEDURE PERFORMED: Cystoscopic exam. Cystolitholapaxy. ANESTHESIA: General via laryngeal mask. FINDINGS: Cystoscopic exam: Urethra-greater than 21 Nigerien, without stricture with caruncle at the urethra. Bladder-normal ureteral orifices bilaterally. An approximate 3 cm stone lying on the right trigone. This was not connected to anything in the bladder; it was not in a diverticula. exam: Normal external female. Atrophic mucosa. The urethral caruncle present at the meatus. No adnexal masses. Palpably normal bladder. INDICATION FOR PROCEDURE: This 48-year-old female was admitted with irritative voiding symptoms. Evaluation revealed a large bladder stone. DESCRIPTION OF PROCEDURE: After informed consent was obtained from the patient, her receiving IV antibiotics, she was taken to the main OR cysto room, placed in the supine position. General anesthesia via laryngeal mask was achieved. She was then placed in a low lithotomy position, prepped and draped in the usual sterile fashion for cystoscopic exam. A 23-Nigerien sheath cystoscope was passed to the patient's urethra and into the bladder with findings as noted above. A 1000 micron laser fiber was placed. The laser was set at 8 hertz and 8 naranjo, and the stone was fragmented. A total of [id number] joules was used. At completion, both ureteral orifices were intact. The bladder mucosa was intact. There were no stone fragments left. The bladder was drained. Cystoscope was removed. exam performed. She tolerated the procedure well. Estimated blood loss 1 mL. She was taken to the recovery room in good condition. cc: Alphonso Chappell MD
[2019-02-09] MEDS ORDERED: SODIUM CHLORIDE 0.9% 10 ML ONE (09:30)
[2019-02-09] MEDS ORDERED: SODIUM PHOSPHATE 40 MMOL in NS 250 ML IV ONE (10:21)
[2019-02-09] MEDS: NORVASC PO SCH (10:48)
[2019-02-09] MEDS: ZOLOFT PO SCH (10:48)
[2019-02-09] MEDS: ROBAXIN PO SCH (10:48)
[2019-02-09] MEDS: MIRAPEX PO SCH (10:48)
[2019-02-09] MEDS: MIRALAX PO SCH (10:49)
[2019-02-09] MEDS: MORPHINE IV PRN (10:58)
[2019-02-09 12:02] VITALS: BP 130/95
[2019-02-09] MEDS: PROTONIX IV SCH (12:51)
[2019-02-09] MEDS: ROCEPHIN 1 GM in NS 50 ML IV SCH (12:52)
--- NOTE | 2019-02-09 13:23 | DISCHARGE SUMMARY ---
ADMISSION DATE: 02/06/2019 DISCHARGE DATE: 02/09/2019 DISCHARGE DIAGNOSES: 1. Possible urinary tract infection. Culture revealed possible contaminant, multiple organisms isolated. 2. Bladder stone, status post cystolitholapaxy. 3. Hypokalemia, resolved. 4. Hypertension. 5. History of brain aneurysm with ventriculoperitoneal shunt. 6. Gastritis with duodenitis versus peptic ulcer disease. 7. Constipation, resolved. 8. Anemia, stable. CONSULTANTS: Dr. Alphonso Chappell, Urology DIAGNOSTICS: 1. Chest x-ray revealed negative exam. 2. CT of the head revealed extensive chronic changes. No definite acute intracranial pathology. 3. CT of the abdomen and pelvis revealed suggestion of subtle thickening involving the antrum of the stomach and the duodenal bulb. Consider gastritis, duodenitis or peptic ulcer disease, hepatic steatosis, 2.8 cm bladder stone, possible constipation. MICROBIOLOGY: Urine culture revealed possible contaminant, multiple organisms isolated. HOSPITAL COURSE: Ms Valdez presented to the emergency room with nausea, vomiting, diarrhea, confusion, and dysuria. She was found to have a 2.8 cm bladder stone which she underwent cystolitholapaxy for complete removal of stone per operative report. She did tolerate this well. It was felt that she had a urinary tract infection, although the culture revealed multiple organisms. She was felt to have gastritis or duodenitis. We continue PPI and she was placed on a clear liquid diet at first and this has been advanced to a regular diet. She has been eating 50% to 100% with no nausea or vomiting. She has had no further diarrhea. She was constipated. She was given enemas and Dulcolax, this has resolved. We repleted potassium and trended electrolytes. Today, she is back to her normal health per her and her mother. She has no complaints and thankfully she is ready for discharge. DISCHARGE VITAL SIGNS: Blood pressure is 130/90, with a heart rate of 91, temperature is 97.7 degrees with room air saturations that are 99%. DISCHARGE PHYSICAL EXAMINATION: Cardiovascular: Regular rate and rhythm. S1 and S2 are appreciated. Pulmonary: Breath sounds are clear with no increased work of breathing noted. Gastrointestinal: Abdomen is soft, nontender, nondistended with bowel sounds in all 4 quadrants. Neurologic: She is alert and oriented. Skin: Warm and dry. DISCHARGE MEDICATIONS: 1. [place] 5 one q.6 hours p.r.n. #20 prescription given. 2. Flexeril 5 mg p.o. b.i.d. p.r.n. 3. Omnicef 300 mg p.o. b.i.d. x7 days. 4. Zoloft 150 mg p.o. daily. 5. Seroquel 300 mg p.o. at bedtime. 6. Mirapex 1 mg p.o. daily. 7. Robaxin 750 mg p.o. t.i.d. 8. Diclofenac 50 mg p.o. q.8 hours p.r.n. 9. Norvasc 10 mg p.o. daily FOLLOWUP: 1. Dr. Alphonso Chappell. She needs to call the office Tuesday to schedule a followup appointment in 2 weeks. 2. Her primary care physician. She needs to call the office to schedule appointment within the next week. She and her mother have been instructed to call to be seen sooner or return to the emergency room for any syncope, dizziness, chest pain, palpitations, shortness of breath, productive cough, temperature greater than 101, any nausea, vomiting, diarrhea, constipation, black or bloody vomitus or stools, any hematuria, dysuria, frequency, urgency, any change in urine stream, difficulty urinating or feeling as if the bladder is not emptying or for any questions or concerns that they may have. She is being discharged home in stable condition with family members. TIME SPENT: This is a greater than 30 minute discharge. Dictated by SUZETTE Woodall for Tico Downey MD Addendum: Patient seen and examined by myself. Agree with SUZETTE note. It reflects my assessment and plan. Patient is being discharged in stable condition. Will be seen by PCP in a week. cc: SUZETTE Woodall MD [facility]
== END 2019-02-09 14:09 | disposition home or self-care (01) | DRG 694 ==
LOC: SUPCPDRO → ED 10:03 → SUATTDRO 13:51 → 4N 13:51
PROVIDERS: ATTEND Internal Medicine

== ENCOUNTER 2019-04-04 11:44 | Inpatient (IN) ==
--- NOTE | 2019-04-04 13:21 | Diag Imaging Result Doc PS360 ---
EXAM: FLAT/UPRIGHT ABD/1 VIEW CHEST 04/04/2019 HISTORY: nv TECHNIQUE: Flat and upright abdomen with AP upright chest COMMENT: There is a ventriculoperitoneal shunt catheter on the right. There is a calcified granuloma in the left upper lobe. The appearance of the chest has not changed significantly since the previous examination of 02/06/2019. There is a fairly large amount of stool present with formed stool throughout the descending colon. The colon is not distended. The stomach and small bowel are not distended and there is no evidence of organomegaly or mass. IMPRESSION: Constipation. Electronically signed by Jose Guadalupe Hicks 04/04/2019 1:19 PM
--- NOTE | 2019-04-04 13:28 | PROVIDER DOCUMENTATION ---
HPI-Abdominal Pain/GI Problem - General Chief Complaint: Nausea/Vomiting Stated Complaint: N/V Time Seen by Provider: 04/04/19 11:56 Source: patient Allergies/Adverse Reactions: Patient Allergies Allergy/AdvReac Type Severity Reaction Status Date / Time latex Allergy RASH Verified 04/04/19 12:05 Home Medications: Home Medication List Medication Instructions Recorded Confirmed Last Taken Type Amlodipine [Norvasc] 10 mg PO DAILY 02/06/19 04/04/19 04/03/19 History 10 MG Pramipexole Di-HCl [Mirapex] 1 mg PO DAILY 02/06/19 04/04/19 04/03/19 History 1 MG Quetiapine Fumarate [Seroquel] 300 mg PO HS 02/06/19 04/04/19 04/03/19 History 300 MG Sertraline HCl [Zoloft] 150 mg PO DAILY 02/06/19 04/04/19 04/03/19 History 150 MG Cyclobenzaprine [Flexeril] 5 mg PO BID PRN PRN #30 tab 02/09/19 04/04/19 04/03/19 Rx 5 MG Diclofenac Potassium 50 mg PO Q8H PRN PRN #90 tab 02/09/19 04/04/19 04/03/19 Rx 50 MG Hydrocodone/APAP 5 mg/325 mg 1 ea PO Q6H PRN PRN #20 tab 02/09/19 04/04/19 04/03/19 Rx [Montalba-5] 1 EA - History of Present Illness-ABD Nature of Presenting Problems: [id number] presents to the ER with of NV with decreased appetite for approximately 2 weeks. She denies any fever. Quality of Pain: reports: none Onset/Duration: reports: other (2 weeks) Timing: reports: intermittent Exposure to sick contacts?: No Associated Symptoms: reports: loss of appetite, nausea, vomiting Last BM: unsure Review of Systems - Adult - REVIEW OF SYSTEMS - ADULT Constitutional: reports: see HPI. denies: chills, fever Eyes: reports: no symptoms reported Ears, Nose, Mouth & Throat: reports: no symptoms reported Cardiovascular: reports: no symptoms reported. denies: chest pain Respiratory: reports: no symptoms reported. denies: cough, shortness of breath, wheezing Gastrointestinal: reports: see HPI, nausea, poor appetite, vomiting Genitourinary: reports: no symptoms reported Musculoskeletal: reports: no symptoms reported Integumentary: reports: no symptoms reported Neurological: reports: no symptoms reported Psychiatric: reports: no symptoms reported Endocrine: reports: no symptoms reported Hematologic/Lymphatic: reports: no symptoms reported Allergic/Immunologic: reports: no symptoms reported All Other Systems: Reviewed and Negative Past History - Adult - PAST MEDICAL HISTORY-ADULT Review of Records: reports: Old Records Reviewed, Nursing Assessment Review, Medications Reviewed, Social history reviewed & non-contributory. Major Childhood Illnesses: reports: denies history Cardiovascular: reports: denies history Respiratory: reports: asthma, denies history Gastrointestinal: reports: colitis, GI bleed Obstetrical/Gynecological: reports: denies history Genitourinary: reports: kidney stones Musculoskeletal: reports: denies history, other fractures, orthopedic injury Neurological: reports: other (aneurysm 2 yrs ago with shunt placement) Endocrine/Immune: reports: denies history Other Conditions: reports: denies history - PRIOR SURGERIES/PROCEDURES Surgical/Procedure History: reports: hysterectomy, orthopedic (extremity) - IMMUNIZATION STATUS Childhood Immunizations: See Nurse Assessment Flu Vaccine: See Nurse Assessment - FAMILY HISTORY Family History: reviewed, not pertinent - SOCIAL HISTORY Smoking: cigarettes, less than 1 pack/day Provider spent 3-5 mins advising pt. on dangers of tobacco.: Discussed manners to quit use, and f/u contacts for add'l counseling. Substance Use: denies Living Situation: family Physical Exam-General - PHYSICAL EXAM-ADULT Initial Vital Signs Reviewed: Yes - CONSTITUTIONAL General Appearance: alert, no apparent distress, thin - EYES Eyes: PERRL/EOMI, pink conjunctivae - HEAD, EARS, NOSE, MOUTH & THROAT HENMT: moist mucous membranes, TMs normal, pharynx normal - NECK Neck: non-tender, full range of motion, supple. negative: lymphadenopathy - RESPIRATORY Respiratory: chest non-tender, lungs clear, normal breath sounds. negative: rhonchi, stridor, wheezing - CARDIOVASCULAR Cardiovascular: regular rate, rhythm - GASTROINTESTINAL (ABDOMEN) Abdominal Exam: normal bowel sounds, non tender, soft, other (thin) - MUSCULOSKELETAL Back Exam: normal inspection Peripheral Pulses: radial (R): 2+, radial (L): 2+, dorsalis-pedis (R): 2+, dorsalis-pedis (L): 2+ - SKIN Integumentary: normal color, warm/dry - PSYCHIATRIC Psych/Mental Status: normal mood/affect, oriented x 3 Progress - PLAN OF CARE/RESULTS Progress/Plan/Lab Results: Vital Signs - 8 hr 04/04/19 11:52 Temperature 98.3 F Pulse Rate 82 Respiratory Rate 20 Blood Pressure 126/82 O2 Sat by Pulse Oximetry 97 Orders Category Date Time Status FLAT/UPRIGHT ABD/1 VIEW CHEST [RAD] Stat Exams 04/04/19 12:43 Completed CBC WITH ELECTRONIC DIFF [HEME] Stat Lab 04/04/19 12:43 Uncollected COMPREHENSIVE METABOLIC PANEL [CHEM] Stat Lab 04/04/19 12:43 Uncollected UA NIMS W/REFLEX CULT [URINALYSIS] Stat Lab 04/04/19 12:43 Uncollected patient verbalizes an understanding of POC and agrees with treatment rendered here today. She will follow up with PCP in 1 week. Result Diagrams: 04/04/19 14:06 04/04/19 14:06 - XRAY 1 XRAY Study: Abdomen Impression: Abnormal (COMMENT: There is a ventriculoperitoneal shunt catheter on the right. There is a calcified granuloma in the left upper lobe. The appearance of the chest has not changed significantly since the previous examination of 02/06/2019. There is a fairly large amount of stool present with formed stool throughout the descending colon. The colon is not distended. The stomach and small bowel are not distended and there is no evidence of organomegaly or mass. IMPRESSION: Constipation.), See EMR Report - CONSULTS/PCP/HOSPITALIST Notification #1 *Consult/PCP/Hospitalist*: SUZETTE Macedo Time Discussed: 16:01 Reason/Comments: anemia, Hypokalemia, Abd pain Consult Disposition: Admit Departure - Departure Date of Disposition Decision: 04/04/19 Time of Disposition Decision: 16:02 DIAGNOSIS: Hypokalemia Anemia Qualifiers: Anemia type: unspecified type Qualified Code(s): D64.9 - Anemia, unspecified Constipation Qualifiers: Constipation type: unspecified constipation type Qualified Code(s): K59.00 - Constipation, unspecified Disposition: ADMITTED INPATIENT 09 Certified Medical Emergency: Emergent Condition: Critical Referrals and Follow-Ups: None,PCP [Primary Care Provider] - - Critical Care Note This patient required my direct & personal management of CC.: No Attestation - Physician/ CARINA Attestation Patient care was provided by Advanced Practice Provider:: Yes Advanced Practice Provider:: Solomon Breen Advanced Practice Provider documentation review:: The Mid-level provider documentation, treatment plan and medical decision making was reviewed by the physician who agrees with all treatment and medical decision making by the MLP. The physician spent face to face time with patient:: No Advanced Practice Provider documentation review:: Supervising physician onsite and consulted in the evaluation and care of this patient. The physician did not have a face to face encounter with the patient.
[2019-04-04 14:29] LABS: BASO# 0.03 X1000 (0.0-0.2); BASO% 0.4 % (0.0-0.8); EOS# 0.05 X1000 (0.0-0.7); EOS% 0.6 % (0.0-10.0); HEMATOCRIT 24.9 % (37.0-47.0); HEMOGLOBIN 7.3 g/dL (12.0-16.0); LYMPH# 1.57 X1000 (1.2-3.4); LYMPH% 18.7 % (20.5-51.1); MCH 24.7 PG (27-31); MCHC 29.3 g/dL (33-37); MCV 84.1 FL (81-99); MONO# 0.34 X1000 (0.11-0.59); MPV 9.1 FL (7.4-10.4); NEUT# 6.41 X1000 (1.4-6.5); NEUT% 76.3 % (42.2-75.2); PLT 549 X1000 (130-400); RBC 2.96 XMIL (4.2-5.4)
[2019-04-04 14:58] LABS: AGAP 12; ALB/GLOB RATIO 1.4; ALBUMIN 3.4 g/dL (3.5-5.0); ALKALINE PHOSPHATASE 96 U/L (32-104); BUN 14 mg/dL (8-22); CALCIUM 8.7 mg/dL (8.8-10.2); CHLORIDE 101 mmol/L (98-107); COSMO 281; CREATININE 0.5 mg/dL (0.5-0.9); ESTIMATED GFR > 60; GLUCOSE 86 mg/dL (70-104); GOT 8 U/L (10-30); GPT 6 U/L (10-36); POTASSIUM 2.4 mmol/L (3.5-5.1); SODIUM 141 mmol/L (136-145); TCO2 28 mmol/L (25-35); TOTAL BILIRUBIN < 0.15 mg/dL (0.20-1.00); TOTAL PROTEIN 5.8 g/dL (6.3-8.3)
[2019-04-04] MEDS ORDERED: NS 1,000 ML IV ONE (14:59)
[2019-04-04] MEDS ORDERED: POTASSIUM CHLORIDE 40 MEQ/SWI 40 MEQ/100 ML IVPB IV ONE (14:59)
[2019-04-04] MEDS ORDERED: ZOFRAN IV ONE (15:06)
[2019-04-04] MEDS ORDERED: NS 1,000 ML IV SCH (16:45)
[2019-04-04] MEDS ORDERED: MAGNESIUM SULFATE 2 GM/S.W.I. 2 GM/50 ML IVPB IV ONE (17:36)
[2019-04-04 18:45] LABS: URINE SOURCE CLEAN CATCH
[2019-04-04 18:48] LABS: BILIRUBIN URINE NEGATIVE (NEGATIVE); BLOOD URINE NEGATIVE (NEGATIVE); COLOR YELLOW; GLUCOSE URINE NEGATIVE (NEGATIVE); KETONE URINE NEGATIVE (NEGATIVE); LEUKOCYTES URINE NEGATIVE (NEGATIVE); NITRITE URINE NEGATIVE (NEGATIVE); PROTEIN URINE TRACE mg/dL (NEGATIVE); SP GRAVITY URINE 1.024; TURBIDITY URINE HAZY (CLEAR); UROBILINOGEN URINE 2 mg/dL (NORMAL)
[2019-04-04 18:59] LABS: UR EPITHELIAL CELLS <10 /HPF (<10); URINE BACTERIA NEGATIVE /HPF; URINE RBC <10 /HPF (<10); URINE WBC <10 /HPF (<10)
[2019-04-04 19:01] LABS: URINE CRYSTALS CA OXALATE PRESENT
[2019-04-04 19:23] LABS: IRON SATURATION 2 %; TIBC 357 ug/dL
[2019-04-04 19:24] LABS: TOTAL IRON 8 ug/dL (49-151); UNBOUND IRON 349 ug/dL (112-346)
[2019-04-04] MEDS: LACTULOSE PO SCH ×2 (20:01→22:31)
[2019-04-04] MEDS: ZOFRAN IV PRN (20:01)
--- NOTE | 2019-04-04 20:23 | HISTORY AND PHYSICAL ---
CHIEF COMPLAINT: Nausea, vomiting, and anorexia. HISTORY OF PRESENT ILLNESS: This is a 48-year-old female with a prior history of hypertension, gastroesophageal reflux disease, and a right brain aneurysm status post surgical repair in 2017. She presents to the emergency room complaining of 2 weeks of nausea, vomiting, and anorexia. She denied any black or bloody vomitus or stools, any abdominal pain. PAST MEDICAL HISTORY: 1. Hypertension. 2. Brain aneurysm status post repair in 2017. 3. Gastroesophageal reflux disease. PAST SURGICAL HISTORY: Hysterectomy, tonsillectomy, brain surgery with CONCRETE PAVER shunt placed in 2017. SOCIAL HISTORY: She smokes a pack a day. Denies alcohol or illicit drug use. ALLERGIES: Latex and morphine. HOME MEDICATIONS: A list will be obtained by the nursing staff and once verified, we will review and restart as appropriate. REVIEW OF SYSTEMS: Discussed with patient with pertinent positives stated in the HPI. She denied any syncope, dizziness, any chest pain, palpitations, shortness of breath, cough, fever, chills, any black or bloody vomitus or stools, any hematuria, dysuria, frequency or urgency. PHYSICAL EXAMINATION: GENERAL: This is a 48-year-old female who is lying on the stretcher in the emergency room in no distress. VITAL SIGNS: Blood pressure is 126/82 with a heart rate of 82, respirations are 20, temperature is 98.3 degrees with room air saturations 97%. HEENT: Head is normocephalic, atraumatic. Mucous membranes are moist. NECK: Supple with trachea midline. CARDIOVASCULAR: Regular rate and rhythm. S1 and S2 are appreciated. EXTREMITIES: She has no lower extremity edema. Calves are nontender bilateral with peripheral pulses palpable x4 extremities. PULMONARY: Breath sounds are clear. No increased work of breathing noted. Chest rises falls symmetric with respiration. Chest wall is nontender to palpation. GASTROINTESTINAL: Abdomen is soft, nontender, nondistended with bowel sounds in all 4 quadrants. NEUROLOGIC: She is alert and oriented x3. SKIN: Warm and dry. LABS: WBC is 8.4 with hemoglobin 7.3, hematocrit 24.6, and platelets of 549,000. Sodium 141, potassium 2.4, BUN 14, creatinine 0.5 with a glucose of 86. IMAGING: Abdominal x-ray reveals constipation but fairly large amount of stool throughout the descending colon. The colon is not distended. Stomach and small bowel are not distended. There is no evidence of organomegaly or mass. ASSESSMENT AND PLAN: 1. Constipation. We will place the patient on clear liquids. Start Dulcolax suppositories every 6 hours and give lactulose now and b.i.d. 2. Anemia. The patient denies any black or bloody vomitus or stools. We will recheck labs in the morning. Check stool for occult blood and monitor. 3. Nausea and vomiting. Just sips of clear liquids. We will give continue with IV hydration and Zofran for nausea. 4. Hypokalemia. Potassium 40 mEq was given in the emergency room. We will add 20 mEq of potassium to each L of IV fluid. Recheck labs in the morning. We will check a stat magnesium now. We will check a magnesium in the morning. 5. The patient will be placed on telemetry. The plan was discussed with Dr. Arias. Further orders after his evaluation. Dictated by SUZETTE Woodall for Hakan Mcconnell MD cc: SUZETTE Woodall MD [facility]
[2019-04-04] MEDS: NS + KCL 20 MEQ 1,000 ML IV SCH (21:50)
[2019-04-04] MEDS: DULCOLAX PR SCH ×2 (21:50→23:24)
--- NOTE | 2019-04-04 21:56 | HISTORY AND PHYSICAL ---
ADDENDUM: The patient seen and examined by me [id number]. All the laboratory, vital signs and images were reviewed. The patient presented to the emergency department with a chief complaint of nausea and vomiting for at least 2 weeks. She seems to be clinically dehydrated,. And as per the patient she has been losing her appetite. She has severe protein-calorie malnutrition. 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 She seems to be constipated as well. She is anemic and probably this is related to nutrition. Her occult blood in the stool is negative. I will ask for anemia workup in the morning. I will hydrate this patient. She will receive potassium, since her potassium is really low. We will put her on Zofran IV, that seems to be working, every 4 hours as needed; lactulose twice a day and also suppositories. We will recheck the lab work in the morning. I will also ask Physical Therapy to evaluate this patient. As per the patient she is able to walk by herself at home, but she has weakness/decreased sensation on the right side of the body, apparently. I agree with the rest of the nurse practitioner's assessment and plan. cc: Hakan Mcconnell MD
[2019-04-04] MEDS: FLEXERIL PO PRN (22:31)
[2019-04-04] MEDS: SEROQUEL PO SCH (22:32)
[2019-04-05] MEDS: DULCOLAX PR SCH ×2 (06:59→10:50)
[2019-04-05 08:08] LABS: BASO# 0.03 X1000 (0.0-0.2); BASO% 0.5 % (0.0-0.8); EOS# 0.06 X1000 (0.0-0.7); HEMOGLOBIN 6.5 g/dL (12.0-16.0); LYMPH# 1.79 X1000 (1.2-3.4); LYMPH% 31.2 % (20.5-51.1); MCH 24.4 PG (27-31); MCHC 28.3 g/dL (33-37); MCV 86.5 FL (81-99); MONO# 0.32 X1000 (0.11-0.59); MONO% 5.6 % (1.7-9.3); MPV 9.1 FL (7.4-10.4); NEUT# 3.54 X1000 (1.4-6.5); NEUT% 61.7 % (42.2-75.2); PLT 474 X1000 (130-400); RBC 2.66 XMIL (4.2-5.4); RDW 17.1 % (11.5-14.5); WBC 5.74 X1000 (4.8-10.8)
[2019-04-05 08:33] LABS: EOS 1 % (1-10); LYMPHS 16 % (21-51); MONO 4 % (1-9); SEGS 79 % (42-75)
[2019-04-05 08:34] LABS: HYPOCHROM 2+; MICROCYTOSIS 1+
[2019-04-05 08:43] LABS: AGAP 6; BUN 7 mg/dL (8-22); CHLORIDE 110 mmol/L (98-107); COSMO 286; CREATININE 0.5 mg/dL (0.5-0.9); ESTIMATED GFR > 60; GLUCOSE 89 mg/dL (70-104); MAGNESIUM 2.4 mg/dL (1.5-2.7); POTASSIUM 3.1 mmol/L (3.5-5.1); SODIUM 145 mmol/L (136-145); TCO2 29 mmol/L (25-35)
[2019-04-05] MEDS ORDERED: NORVASC PO SCH (09:00)
[2019-04-05] MEDS: ZOLOFT PO SCH (10:50)
[2019-04-05] MEDS: NS + KCL 20 MEQ 1,000 ML IV SCH (10:50)
[2019-04-05] MEDS: MIRAPEX PO SCH (10:50)
[2019-04-05] MEDS: LACTULOSE PO SCH ×2 (10:50→20:55)
[2019-04-05] MEDS ORDERED: TYLENOL PO PRN (16:40)
[2019-04-05] MEDS ORDERED: NS 500 ML IV ONE (17:08)
[2019-04-05] MEDS ORDERED: POTASSIUM CHLORIDE 20 MEQ/SWI 20 MEQ/100 ML IVPB IV SCH (18:00)
[2019-04-05] MEDS: PROTONIX IV SCH (18:42)
[2019-04-05] MEDS: THERA M PLUS PO SCH (18:43)
[2019-04-05] MEDS: FERROUS SULFATE PO SCH (18:43)
[2019-04-05] MEDS: KLOR-CON PO SCH ×2 (18:43→20:55)
[2019-04-05] MEDS ORDERED: NS 500 ML ONE (19:57)
--- NOTE | 2019-04-05 20:53 | PROGRESS NOTE ---
DATE: 04/05/2019 INTERVAL HISTORY: No acute events overnight. She had further drop in her hemoglobin. SUBJECTIVE: Ms. Valdez states that she wants to eat some food. She has not had any more vomiting episodes. She states she did have black looking bowel movements. Her hypokalemia is currently being repleted. She has been started on iron tablets for iron deficiency anemia, and she has received 1 unit of blood. She denies chest pain, shortness of breath, nausea, vomiting. VITAL SIGNS: Temperature 97.7 degrees, pulse 88, respiratory rate 18, blood pressure 119/86, saturating 100% in room air. PHYSICAL EXAMINATION: HEENT: She has marked facial and conjunctival pallor. Oral cavity is moist. Lungs: Air entry bilaterally equal. No wheeze, rhonchi, crackles. Cardiovascular: S1, S2 normal. No murmur or gallop. Abdomen: Soft, nontender. She has a several folds of skin. Active bowel sounds. Extremity: No lower extremity edema. Neurologic: She is alert. She does have severe protein-calorie malnutrition with temporal wasting. She has had a previous left-sided craniotomy. Pupils are bilaterally equal, reacting to light. She does have some residual weakness of right upper and right lower extremities. She also has some word-finding difficulty and paraphasia. LABS: Suggestive of anemia with hemoglobin of 6.5, platelet of 474,000, hypokalemia. Normal kidney function. Potassium of 3.1, BUN of 7, creatinine 0.5. MICROBIOLOGY: Stool occult blood initially was negative. IMAGING: Abdominal x-ray was suggestive of constipation. ASSESSMENT AND PLAN: 1. Iron deficiency anemia. CT scan abdomen in January 2019 did detect evidence of gastritis or duodenitis. Certainly, peptic ulcer disease and acute blood loss anemia are a possibility, though her initial fecal occult blood test is negative. She does complain of melena. I will start her on intravenous Protonix b.i.d. and iron supplementation. We will repeat stool test and give her 1 unit of packed red blood cells, and follow up with CBC tomorrow. 2. Nausea and vomiting. Continue Zofran as needed. Considering her weight loss, nausea, vomiting, and iron deficiency anemia, I will consult GI to see if she would need inpatient versus outpatient endoscopy for further workup. 3. Constipation. The patient states she did have a bowel movement, though it is not charted. I am keeping her on lactulose and will add suppositories as needed. 4. History of intracranial hemorrhage, status post ventriculoperitoneal shunt in 2017, and residual right upper and lower extremity weakness and paraphasia. Aware. I will keep her on cyclobenzaprine as needed along with pramipexole for restless leg and muscle spasms. I will continue home quetiapine and sertraline. DISPOSITION: Monitor the patient in telemetry unit. Plan of care discussed with her. All of her questions have been answered. cc: Alton Tapia MD
[2019-04-05] MEDS: SEROQUEL PO SCH (20:55)
[2019-04-05] MEDS: FLEXERIL PO PRN (20:56)
[2019-04-06] MEDS: PROTONIX IV SCH ×2 (05:34→17:59)
[2019-04-06 08:12] LABS: BASO# 0.03 X1000 (0.0-0.2); BASO% 0.5 % (0.0-0.8); EOS# 0.11 X1000 (0.0-0.7); HEMATOCRIT 29.7 % (37.0-47.0); HEMOGLOBIN 8.6 g/dL (12.0-16.0); IMM GRAN# 0.02 X1000 (0.0-0.04); IMM GRAN% 0.4 % (0.0-0.5); LYMPH# 1.42 X1000 (1.2-3.4); LYMPH% 25.3 % (20.5-51.1); MCH 24.6 PG (27-31); MCV 85.1 FL (81-99); MONO# 0.38 X1000 (0.11-0.59); MONO% 6.8 % (1.7-9.3); NEUT# 3.65 X1000 (1.4-6.5); PLT 432 X1000 (130-400); RBC 3.49 XMIL (4.2-5.4); RDW 17.1 % (11.5-14.5); WBC 5.61 X1000 (4.8-10.8)
--- NOTE | 2019-04-06 09:49 | GASTROENTEROLOGY CONSULTATION ---
DATE: 04/06/2019 REASON FOR CONSULT: Iron deficiency anemia. HISTORY OF PRESENT ILLNESS: Ms. Valdez is a 48-year-old female with a history of hypertension, GERD, right brain aneurysm status post surgical repair in 2017 and history of smoking 1 pack of cigarettes a day. The patient presented to the emergency department on 04/04/2019 with complaints of nausea, vomiting and anorexia. The patient mentioned that this has been going on for the last 2 weeks onwards, has been losing her appetite and also complained of being constipated. The patient denied noticing any blood or coffee-grounds emesis in her vomit. She is currently complaining of mild abdominal pain. Rating the pain as 5/10 and describing it sore and sometimes crampy. She also c/o of weakness and decreased sensation on the right side of the body and does not feel comfortable moving around by herself.. Her H & H on admission was 7.3 and 24.9, today it is 8.6 and 29.7. Patient did receive 1 unit of blood. Abdominal x-ray on 04/04/2019 showed constipation. PAST MEDICAL HISTORY: Hypertension, GERD, and brain aneurysm, status post surgery in 2017. 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 ALLERGIES: The patient is allergic to latex and morphine. SOCIAL HISTORY: The patient is single. She smokes 1 pack of cigarettes a day. She has denied drinking any alcohol or doing illicit drugs. FAMILY HISTORY: No significant GI malignancies. HOME MEDICATIONS: Norvasc 10 mg p.o. daily, Mirapex 1 mg p.o. daily, Seroquel 300 mg p.o. at bedtime, Zoloft 150 mg p.o. daily, hydrocodone/acetaminophen 1 tablet every 6 hours as needed, cyclobenzaprine/Flexeril 5 mg p.o. twice a day p.r.n., and diclofenac potassium 50 mg tablet p.o. every 8 hours as needed. REVIEW OF SYSTEMS: As per HPI. Otherwise, 12-point review of system is negative. PHYSICAL EXAMINATION: Vital Signs: Temperature 98.1 degrees, pulse 82, respirations 19, blood pressure 121/84, oxygen saturation 97% on room air. The patient's weight is 104 pounds, BMI is 17.4 kg/m2. General: Patient is alert, oriented x3, and in no acute distress. Anxious but answering questions appropriately. HEENT: Pale conjunctivae. No icterus. PERRL. Neck: Supple. Lungs: Clear to auscultation. Cardiovascular: Regular rate and rhythm. Abdomen: Soft, tender, nondistended. Active bowel sounds heard in all 4 quadrants. Surgical scars noted in the mid abdominal area. Extremities: No clubbing, no cyanosis, no edema. Pedal pulses 2+ present bilaterally. Neurologic: Alert and oriented x3. Nonfocal. Cranial nerves 2 through 12 grossly intact. LABORATORY DATA: WBCs of 5.61, RBC 3.49, hemoglobin 8.6, hematocrit 29.7, platelet count is 432,000. Sodium 145, potassium 3.1, chloride 110, carbon dioxide 29, anion gap 6, BUN 7, creatinine 0.5, glucose 80, calcium 8.4, magnesium 2.4, ferritin 8. IMAGING: Abdominal x-ray showed constipation. Abdominal/Pelvis CT today showed severe diffuse constipation, stable significant wall thickening of the distal stomach compatible with advance gastritis, tiny non obstructing right renal stone. EGD FINDINGS: Mucosa of the esophagus was normal. Single ulcer measuring 30 mm in size found on the anterior wall of the gastric antrum, biopsies were taken. Single ulcer measuring 10 mm in size found at the pylorus. Unable to find the lumen of the pylorus concerning for gastric outlet obstruction. No residual food or fluid in the stomach. Biopsies pending. IMPRESSION AND PLAN: Nausea and vomiting gastric outlet obstruction Abdominal pain Gastric ulcer Pyloric Ulcer Constipation Anxiety Iron deficiency anemia PLAN: Ms. Valdez is a 48-year-old female with a history of right brain aneurysm s/p shunt placement in 2017. Gastrointestinal has been consulted for iron deficiency anemia. The patient's hemoglobin and hematocrit today are 8.6 and 29.7. The patient is also complaining of nausea and vomiting. We did an EGD today to find out the cause of her nausea and vomiting. Patient had gastric ulcer and pyloric ulcer and possibility of the gastric outlet obstruction. Abdominal/Pelvis CT showed severe diffuse constipation, stable significant wall thickening of the distal stomach compatible with advance gastritis, tiny non obstructing right renal stone.The patient is currently on Zofran, antiemetics, every 4 hours as needed for nausea and vomiting. We will continue PPI twice a day for her ulcers. For her anemia she is on ferrous sulfate and multivitamin per PCP. She is Dulcolax MS BID and Lactulose BID for her constipation per PCP. Patient's diet has yelitza advance to full liquid. We will continue to monitor her and follow the plan of care per PCP. This plan was discussed with Dr. Butt. Thank you for your consult. Please call us for any further questions or concerns. Dictated by SUZETTE Teran for El Butt MD Physician Attestation I have seen and examined the patient. I have discussed and reviewed the note by Giuliana BRADFORD and agree with findings and plan as documented. In brief, Ms. Magy Valdez is a 48 year old woman with tobacco abuse, HTN, chronic pain, depression who presented with intractable N/V, weight loss, and abdominal pain found to have severe protein calorie malnutrition and ANTWAN. EGD showed gastric ulcer and ulcer at the pylorus with inability to find lumen of pylorus consistent with gastric outlet obstruction. Biopsies of larger ulcer pending. PUD is likely 2/[address] A/P was ordered that showed distal gastric wall thickening but no masses and constipation. No prior colonoscopy. Consider switching suppositories to mineral oil enemas. Surgery consult is pending. Patient will likely need surgical intervention. Keep NPO with clinimix. Low threshold to place NGT if patient develops N/V. MTDD
[2019-04-06] MEDS ORDERED: DIPRIVAN 1% ONE (09:50)
[2019-04-06] MEDS ORDERED: XYLOCAINE-MPF 2% ONE (09:50)
--- NOTE | 2019-04-06 10:22 | ENDOSCOPY OPERATIVE NOTE ---
[facility] ENDOSCOPY OPERATIVE NOTE , EGD PROCEDURE REPORT EXAM DATE: 04/06/2019 PATIENT NAME: Magy Valdez MR#: [id number] BIRTHDATE: 1970 ATTENDING: El Butt MD STATUS: inpatient PINION SORTER: INDICATIONS: The patient is a 48 yr old female here for an EGD due to iron deficiency anemia, nausea , vomiting, and weight loss. PROCEDURE PERFORMED: EGD w/ biopsy MEDICATIONS: Per Anesthesia ESTIMATED BLOOD LOSS: None CONSENT: The patient understands the risks and benefits of the procedure and understands that these r isks include, but are not limited to: sedation, allergic reaction, infection, perforation and/or bleeding. Alternative means of evaluation and treatment include, among others: physical exam, x-rays, and/or surgical intervention. The patient elects to proceed with this endoscopic procedure. DESCRIPTION OF PROCEDURE: During pre-op preparation period all mechanical and medical equipment was c hecked for proper function. Hand hygiene and appropriate measures for infection prevention was taken. After the risks, benefits and alternatives of the procedure were thoroughly explained, Informed consent was verified, confirmed and timeout was successfully executed by the treatment team. The patient was anesthetized with topical anesthesia and the [id number]-[id number] ([id number]) endoscope was introduced through the mouth and advanced to the stomach antrum. Retroflexio n was performed in the stomach and revealed no abnormalities. The gastroscope was then slowly withdrawn and removed. T he patient's toleration of the procedure was good. ESOPHAGUS: The mucosa of the esophagus appeared normal. Z-line was regular at 35cm from incisors. STOMACH: A single non-bleeding, deep and clean-based ulcer measuring 30mm in size was found on the an terior wall of the gastric antrum. Biopsies were taken at edge of the ulcer. A single non-bleeding and clean-based, c ratered ulcer measuring 10mm in size was found at the pylorus. Unable to find lumen of pylorus concerning for gas tric outlet obstruction. There was no residual fluid or food in the stomach. ADVERSE EVENTS: There were no complications. IMPRESSIONS: 1. The mucosa of the esophagus appeared normal 2. Z-line was regular at 35cm from incisors 3. Single ulcer measuring 30mm in size was found on the anterior wall of the gastric antrum; biopsie s were taken 4. Single ulcer measuring 10mm in size was found at the pylorus 5. Unable to find lumen of pylorus concerning for gastric outlet obstruction. There was no residual fluid or food in the stomach RECOMMENDATIONS: 1. Keep NPO 2. CT A/P 3. Consult general surgery for surgical evaluation for gastric outlet obstruction 4. Continue PPI IV BID 5. Avoid NSAIDs 6. Await biopsy results REPEAT EXAM: El Butt MD eSigned: El Butt MD 04/06/2019 10:21 AM CC: CPT CODES: 66432 Upper gastrointestinal endoscopy including esophagus, stomach, and either the du odenum and/or jejunum as appropriate; with biopsy, single or multiple ICD CODES: 280.9 Iron deficiency anemia,unspecified 787.02 Nausea 787.03 Vomiting,unspecified 783.21 Loss of weight The ICD and CPT codes recommended by this software are interpretations from the data that the [facility] staff has captured with the software. The verification of the translation of this report to the ICD and CPT co tania and modifiers is the sole responsibility of the health care institution and practicing physician where this report was generated. [employer] will not be held responsible for the validity of the ICD and CPT codes i ncluded on this report. A assumes no liability for data contained or not contained herein. CPT is a registered tra demark of the [employer]. PATIENT NAME: Magy Valdez MR#: [id number]
[2019-04-06] MEDS: FERROUS SULFATE PO SCH (10:42)
[2019-04-06] MEDS: LACTULOSE PO SCH ×2 (10:42→20:39)
[2019-04-06] MEDS: THERA M PLUS PO SCH (10:43)
[2019-04-06] MEDS: MIRAPEX PO SCH (10:43)
[2019-04-06] MEDS: ZOLOFT PO SCH (10:43)
--- NOTE | 2019-04-06 12:40 | PROGRESS NOTE ---
DATE: 04/06/2019 INTERVAL HISTORY: No acute events overnight. She received 1 unit of blood transfusion following which her hemoglobin increased appropriately. SUBJECTIVE: Ms. Valdez denies new complaints. She has not been having any vomiting. She has occasional nausea. She states she had a bowel movement yesterday night which looked light brown. On my today's encounter, she denies any history of melena. We discussed about GI consultation. We discussed about possibility of peptic ulcer disease. I answered all of her questions. VITALS: Temperature 98.1 degrees, pulse 80, respiratory rate 19, blood pressure 120/80, saturating 97% on room air. PHYSICAL EXAMINATION: General: Cachectic, not in acute distress. Oral cavity: Dry. Lungs: Air entry bilaterally equal. No wheeze, rhonchi, crackles. Cardiovascular: S1, S2 normal. No murmur or gallop. Abdomen: Soft. Mild tenderness in hypogastric region. She has several skin folds. Extremities: No lower extremity edema. Neurologic: She is alert, oriented x3. She has severe protein energy malnutrition with temporal wasting, more pronounced on the left side because of craniotomy. Pupils are bilaterally equal, reacting to light. She has residual weakness of right upper and lower extremity with right-sided footdrop. She has paraphasia and some word-finding difficulty, which is her baseline. LABS: Suggestive of hemoglobin of 8.6, platelet 432,000. MICROBIOLOGY/IMAGING: No new microbiological or imaging data. ASSESSMENT AND PLAN: 1. Iron deficiency anemia with CT scan in January 2019 showing gastritis or duodenitis. Differential includes peptic ulcer disease and possibility of acute blood loss anemia. Her hemoglobin olu appropriately after 1 unit of transfusion. Continue iron, multivitamin tablets, intravenous Protonix and follow up esophagogastroduodenoscopy results. 2. Nausea, vomiting and constipation. Continue intravenous Zofran, lactulose, and suppositories as needed. 3. History of intracranial hemorrhage, status post ventriculoperitoneal shunt in 2017 and residual right upper and lower extremity weakness with paraphasia. I will keep her on cyclobenzaprine, pramipexole for restless leg syndrome and muscle spasm, as well as quetiapine and sertraline. DISPOSITION: Following EGD results, plan of care discussed with the patient. Her questions have been answered. cc: Alton Tapia MD
--- NOTE | 2019-04-06 13:44 | Diag Imaging Result Doc PS360 ---
CT ABDOMEN/PELVIS W/WO CONTRAS - 04/06/2019 INDICATION: r/o gastric outlet obstruction COMPARISON: 02/06/2019 FINDINGS: On the noncontrast exam, there is a small nonobstructing renal stone in the lower pole of the right kidney measuring 3 mm. 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 On the contrast-enhanced exam, there is some wall thickening of the distal antrum and myriam worse of the stomach. This appears very stable from prior. However the body and fundus of the stomach are not distended. There is a focal fatty change at the anterior surface of the liver. The gallbladder, pancreas, spleen, adrenals, and kidneys are normal. There is significant constipation. No bowel obstruction or inflammation. Uterus is absent. Urinary bladder and rectum are normal. There are moderate degenerative changes of the spine. No acute or suspicious bony lesion. The lung bases demonstrate some linear atelectasis but are clear of infiltrate. Heart size is normal. IMPRESSION: 1. Severe diffuse constipation. 2. Stable significant wall thickening of the distal stomach most compatible with advanced gastritis. Recommend treatment and follow-up imaging or endoscopy. 3. Tiny nonobstructing right renal stone. This exam was performed using automated exposure control, adjustment of mA or kV according to patient size, and/or use of iterative reconstruction technique Electronically signed by Cullen Arteaga 04/06/2019 1:41 PM
[2019-04-06] MEDS: SODIUM CHLORIDE 0.9% INJ SCH (17:59)
[2019-04-06] MEDS: SEROQUEL PO SCH (20:39)
[2019-04-06] MEDS: FLEXERIL PO PRN (20:42)
[2019-04-06] MEDS: DULCOLAX PR SCH (20:46)
[2019-04-07] MEDS: SODIUM CHLORIDE 0.9% INJ SCH (06:05)
[2019-04-07] MEDS: PROTONIX IV SCH ×2 (06:06→18:30)
[2019-04-07 08:47] LABS: BASO# 0.07 X1000 (0.0-0.2); BASO% 1.1 % (0.0-0.8); EOS# 0.12 X1000 (0.0-0.7); EOS% 1.9 % (0.0-10.0); HEMATOCRIT 33.3 % (37.0-47.0); HEMOGLOBIN 9.9 g/dL (12.0-16.0); LYMPH# 1.14 X1000 (1.2-3.4); LYMPH% 17.9 % (20.5-51.1); MCH 25.6 PG (27-31); MCHC 29.7 g/dL (33-37); MCV 86.3 FL (81-99); MONO% 4.7 % (1.7-9.3); NEUT# 4.74 X1000 (1.4-6.5); NEUT% 74.4 % (42.2-75.2); PLT 310 X1000 (130-400); RBC 3.86 XMIL (4.2-5.4); RDW 17.9 % (11.5-14.5); WBC 6.37 X1000 (4.8-10.8)
[2019-04-07 10:07] LABS: AGAP 12; BUN 3 mg/dL (8-22); CALCIUM 9.2 mg/dL (8.8-10.2); CHLORIDE 107 mmol/L (98-107); COSMO 275; CREATININE 0.5 mg/dL (0.5-0.9); ESTIMATED GFR > 60; GLUCOSE 86 mg/dL (70-104); SODIUM 140 mmol/L (136-145); TCO2 21 mmol/L (25-35)
[2019-04-07] MEDS: THERA M PLUS PO SCH (10:21)
[2019-04-07] MEDS: LACTULOSE PO SCH (10:21)
[2019-04-07] MEDS: FERROUS SULFATE PO SCH (10:21)
[2019-04-07] MEDS: MIRAPEX PO SCH (10:21)
[2019-04-07] MEDS: ZOLOFT PO SCH (10:21)
[2019-04-07] MEDS: DULCOLAX PR SCH ×2 (10:25→21:11)
[2019-04-07] MEDS: FLEXERIL PO PRN ×2 (10:36→21:13)
[2019-04-07] MEDS: CLINIMIX E 4.25%-5% SOLUTION 1,000 ML IV SCH (11:42)
--- NOTE | 2019-04-07 12:58 | PROGRESS NOTE ---
DATE: 04/07/2019 INTERVAL HISTORY: Ms. Valdez underwent an upper endoscopy yesterday which had gastric outlet obstruction so the General Surgical team was consulted. The evaluation of whom is pending. SUBJECTIVE: Ms. Valdez is hungry and wants to eat. She has been on a liquid diet. I discussed about advancing it to a softer diet. I sat down and talked with her about gastric outlet obstruction in simple terms. I talked with her about possibility of an ulcer, tumor or mass. I educated her and counseled her about quitting smoking. We also discussed briefly about left lower extremity claudication symptoms likely because of peripheral arterial disease. OBJECTIVE: Vitals Signs: Temperature 98.1 degrees, pulse 73, respiratory rate 16, blood pressure 105/65, and saturating 100% room air. General: She is not in any acute distress. Oral cavity is moist. Lungs: Air entry bilaterally equal. No wheeze, rhonchi, or crackles. Cardiovascular: S1, S2 normal. No murmur or gallop. Abdomen: Soft. Nontender. Extremities: She does not have any lower extremity edema. She does have several abdominal folds because of weight loss. She has severe protein energy malnutrition and cachexia, especially left temporal side because of craniotomy. She has a right-sided footdrop and slight weakness of right upper and lower extremity as compared to left. Neurologic: She also has paraphasia and word-finding difficulty which is baseline for her. LABORATORY: Suggestive of hemoglobin of 9.9 and platelets 310,000. She does not have BMP back yet. ASSESSMENT AND PLAN: 1. Iron deficiency anemia. This could be related to chronic blood loss. Continue oral iron and multivitamins. I will also keep her on pantoprazole every 12 hours for now. 2. Recurrent nausea and vomiting and significant weight loss over the last several months. EGD performed on 04/06 had detected single ulcer measuring 30 mm in size in the anterior wall of the gastric antrum. There was ulcer in the pylorus and gastric outlet obstruction. Continue Protonix intravenous b.i.d. Follow up biopsy results. General surgical team has been consulted for further management. 3. Constipation. Since presentation, now resolved. She states she has had multiple bowel movements that started yesterday. I will decrease her stool softeners. 4. History of intracranial hemorrhage, status post CLINIC LPN shunt in 2017, residual right upper and lower extremity weakness, and paraphasia. I will keep her on her home cyclobenzaprine and pramipexole for restless legs syndrome and muscle spasms, and quetiapine as well as sertraline. DISPOSITION: I am awaiting further surgical recommendation, and the patient to tolerate softer diet. Based on that, further disposition will be decided. Plan of care discussed with her. Her questions have been satisfactorily answered. cc: Alton Tapia MD
--- NOTE | 2019-04-07 14:32 | CONSULTATION ---
DATE OF CONSULTATION: 04/07/2019 HISTORY OF PRESENT ILLNESS: Ms. Magy Valdez is a 48-year-old white female who was admitted through our Emergency Department on 04/04/2019 with complaints of nausea and vomiting and decreased appetite for at least 2 weeks. She has had a significant weight loss. She was admitted to our hospitalist for further evaluation and treatment. It was noted that she had chronic anemia and GI was asked to evaluate her. Dr. Butt has performed an upper endoscopy which documented a gastric outlet obstruction and also a gastric ulcer. Of note, she has had brain surgery recently and had to undergo rehab and she has probably had chronic peptic ulcer disease and has developed a gastric outlet obstruction as probably a cause for her admitting symptoms. We were asked to evaluate her because of her gastric outlet obstruction. PAST MEDICAL HISTORY: High blood pressure, brain aneurysm status post repair in 2017, gastroesophageal reflux, hysterectomy, and tonsillectomy. 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 She is a smoker. She cares for her family. She lives in [place]. ALLERGIES: Latex and morphine. MEDICATIONS: Norvasc, Mirapex, Seroquel, Zoloft, Flexeril, potassium, and pain medicine. REVIEW OF SYSTEMS: A 14 point review of systems was performed and besides her weight loss was essentially negative except for the history of present illness. FAMILY HISTORY: Noncontributory, but was reviewed with the patient. PHYSICAL EXAMINATION: Vital Signs: She is 5 feet 5 inches and weighs 99 pounds. Her heart rate is 73. Blood pressure is 105/65. O2 saturation is 100%. She is afebrile. General: Ms. Valdez looks older than her stated age. She has had obvious left-sided brain surgery because of some skull changes on the left side. She is awake and cooperative. She is very slim. HEENT: She has no evidence of jaundice. No oral lesions. No cervical or supraclavicular lymphadenopathy. Heart: Regular rate. Lungs: Clear. She had no work of breathing. Abdomen: Flat. No previous incisions. There is no evidence of hernia and there is no palpable mass or tenderness. Genitourinary: Rectal and vaginal exams were not performed. Extremities: She does have palpable femoral pulses. She has no peripheral edema. Neurological: She had no focal deficit. She did have some slow speech. LABORATORY DATA: Her white blood cell count is normal. Hematocrit is 33%. BUN and creatinine are 3 and 0.5. IMPRESSION: Gastric outlet obstruction, probably because of chronic peptic ulcer disease now causing weight loss, nausea, and vomiting. PLAN: I feel that she will probably need a truncal vagotomy, antrectomy, and B1 anastomosis for a gastric outlet obstruction. She has been started back on liquids and hopefully she will tolerate those through this obstruction. We need to work on improving her nutrition prior to any surgery. This coming Tuesday I need to review the operating room schedule to see what her surgical plan may be. cc: Sheron Gutierres MD
[2019-04-07] MEDS: SEROQUEL PO SCH (21:11)
--- NOTE | 2019-04-07 23:19 | PROVIDER PROGRESS NOTE ---
Progress Note S: O: Last Vital Signs Temp 98.2 F 04/07/19 23:07 Pulse 88 04/07/19 23:07 Resp 17 04/07/19 23:07 BP 94/68 04/07/19 23:07 Pulse Ox 100 04/07/19 23:07 Height 5 ft 5 in Weight 104 lb 9 oz LABS: 04/07/19 04/07/19 08:23 08:23 WBC 6.37 Hgb 9.9 L D Plt Count 310 Sodium 140 Potassium 4.0 Chloride 107 Carbon Dioxide 21 L Anion Gap 12 BUN [address] ABDOMEN/PELVIS W/WO CONTRAS - 04/06/2019 INDICATION: r/o gastric outlet obstruction COMPARISON: 02/06/2019 FINDINGS: On the noncontrast exam, there is a small nonobstructing renal stone in the lower pole of the right kidney measuring 3 mm. There is HOSE MENDER shunt catheter tubing terminating in the mid abdomen. On the contrast-enhanced exam, there is some wall thickening of the distal antrum and myriam worse of the stomach. This appears very stable from prior. However the body and fundus of the stomach are not distended. There is a focal fatty change at the anterior surface of the liver. The gallbladder, pancreas, spleen, adrenals, and kidneys are normal. There is significant constipation. No bowel obstruction or inflammation. Uterus is absent. Urinary bladder and rectum are normal. There are moderate degenerative changes of the spine. No acute or suspicious bony lesion. The lung bases demonstrate some linear atelectasis but are clear of infiltrate. Heart size is normal. IMPRESSION: 1. Severe diffuse constipation. 2. Stable significant wall thickening of the distal stomach most compatible with advanced gastritis. Recommend treatment and follow-up imaging or endoscopy. 3. Tiny nonobstructing right renal stone.
[2019-04-08] MEDS: CLINIMIX E 4.25%-5% SOLUTION 1,000 ML IV SCH ×2 (05:45→17:56)
[2019-04-08] MEDS: PROTONIX IV SCH ×2 (05:46→17:54)
[2019-04-08] MEDS: SODIUM CHLORIDE 0.9% INJ SCH (05:47)
[2019-04-08 08:07] LABS: BASO# 0.03 X1000 (0.0-0.2); BASO% 0.5 % (0.0-0.8); EOS# 0.11 X1000 (0.0-0.7); EOS% 1.9 % (0.0-10.0); HEMATOCRIT 29.5 % (37.0-47.0); HEMOGLOBIN 8.4 g/dL (12.0-16.0); LYMPH# 1.28 X1000 (1.2-3.4); LYMPH% 22.4 % (20.5-51.1); MCH 24.1 PG (27-31); MCHC 28.5 g/dL (33-37); MCV 84.8 FL (81-99); MONO# 0.31 X1000 (0.11-0.59); MONO% 5.4 % (1.7-9.3); NEUT# 3.99 X1000 (1.4-6.5); NEUT% 69.8 % (42.2-75.2); PLT 455 X1000 (130-400); RBC 3.48 XMIL (4.2-5.4); RDW 17.1 % (11.5-14.5); WBC 5.72 X1000 (4.8-10.8)
--- NOTE | 2019-04-08 09:19 | EKG Report ---
Test Performed on : 04/08/2019 06:37:43 AM Test Reason : Follow up QTc Blood Pressure : / mmHG Vent. Rate : 085 BPM Atrial Rate : 085 BPM P-R Int : 166 ms QRS Dur : 088 ms QT Int : 388 ms P-R-T Axes : 067 -52 070 degrees QTc Int : 461 ms Normal sinus rhythm. Left anterior fascicular block Septal infarct (cited on or before 06-FEB-2019) Abnormal ECG When compared with ECG of 06-FEB-2019 10:40, (Unconfirmed) Questionable change in initial forces of Anterior leads Nonspecific T wave abnormality no longer evident in Anterior leads Confirmed by Navi WAGGONER, Ishan Gonzalez ([id number]) on 04/09/2019 5:57:02 PM
[2019-04-08] MEDS: FERROUS SULFATE PO SCH (10:51)
[2019-04-08] MEDS: THERA M PLUS PO SCH (10:51)
[2019-04-08] MEDS: ZOLOFT PO SCH (10:51)
[2019-04-08] MEDS: MIRAPEX PO SCH (10:51)
[2019-04-08] MEDS: DULCOLAX PR SCH ×2 (10:52→21:54)
--- NOTE | 2019-04-08 19:54 | PROGRESS NOTE ---
DATE: 04/08/2019 SUBJECTIVE: She presented with nausea, vomiting, anorexia and is a 48-year-old female with history of hypertension, gastroesophageal reflux, right brain aneurysm status post surgical repair in 2018. Presented to the emergency room complaint of 2-week history of nausea, vomiting, and anorexia. Denied any black or bloody vomitus or stools. PAST MEDICAL HISTORY: 1. Hypertension. 2. Brain aneurysm status post repair in 2017. 3. Gastroesophageal reflux disease. SURGICAL HISTORY: 1. Hysterectomy. 2. Tonsillectomy. 3. Brain surgery with AUGER OPERATOR shunt 2017. 1. Admitted with what looks like to be constipated and started Dulcolax suppositories q.6 hours anemia. Denied any black or bloody stools. Continue to follow. 2. Nausea and vomiting. I put her on clear liquids. 3. Hypokalemia, supplemented. PHYSICAL EXAM: Today, temperature 98.5 degrees, pulse 90, respirations 14, blood pressure 125/86.HEENT: Pupils are equal and round. Lungs: Clear in all lung king. Cardiovascular: Regular rhythm and rate without murmur or S3. Abdomen: Soft. Skin: Warm and dry. LABORATORY: Hematocrit is 29. Hemoglobin 8.4. ASSESSMENT AND PLAN: 1. Iron deficiency anemia. CT scan in January 2019 showed gastritis and duodenitis. Differential includes peptic ulcer disease, possibly acute blood loss anemia. Dr. Butt is following. 2. Severe diffuse constipation. 3. Significant thickening of the distal stomach, most compatible with advanced gastritis. Continue treatment. Follow up imaging or endoscopy. 4. Tiny nonobstructing renal stone. REVIEW OF ORDERS: 1. On Dulcolax suppositories 10 mg per rectum twice a day. 2. Getting Clinimax 75 mg at bedtime. 3. Ferrous sulfate 325 mg a day. 4. Multivitamin 1 a day. 5. Protonix 40 mg IV q.12 hours. 6. Mirapex 1 mg p.o. daily. 7. Seroquel 300 mg at bedtime. 8. Zoloft 150 mg daily. REVIEW OF LABS: White count 5720, hematocrit 29, hemoglobin 8.4, platelet count is 455,000. Sodium 140, potassium 4.0, chloride 107, BUN 3, creatinine 0.5. cc: Donald James MD
[2019-04-08] MEDS: SEROQUEL PO SCH (21:52)
[2019-04-08] MEDS: FLEXERIL PO PRN (21:52)
--- NOTE | 2019-04-08 23:45 | PROVIDER PROGRESS NOTE ---
Progress Note S: Patient tolerating clears. She is requesting solid food. No N/V. +abdominal pain. O: Last Vital Signs Temp 98.2 F 04/08/19 19:21 Pulse 91 H 04/08/19 19:21 Resp 17 04/08/19 19:21 BP 132/90 04/08/19 19:21 Pulse Ox 100 04/08/19 19:21 Height 5 ft 5 in Weight 104 lb 9 oz GEN: thin, NAD HEENT: anicteric, MMM NECK: supple, no JVD PULM CTAB, no wheezing CV: RRR, no murmurs ABD: soft, ND, mild TTP right periumbilical area, no rebound or guarding EXT: no cce NEURO: nonfocal LABS: 04/08/19 07:39 WBC 5.72 Hgb 8.4 L D Plt Count 455 H D A/P: Ms. Magy Valdez is a 48 year old woman with tobacco abuse, HTN, chronic pain, depression who presented with intractable N/V, weight loss, and abdominal pain found to have severe protein calorie malnutrition and ANTWAN. EGD showed gastric ulcer and ulcer at the pylorus with inability to find lumen of pylorus consistent with gastric outlet obstruction. Biopsies of larger ulcer pending. PUD is likely 2/[address] A/P was ordered that showed distal gastric wall thickening but no masses and constipation. No prior colonoscopy. She is tolerating clears. Surgery following. On Clinimix and PPI IV BID. Ulcer biopsies are pending. # Gastric outlet obstruction # PUD # Severe protein calorie malnutrition # HTN # Tobacco abuse # Thrombocytosis Will follow with you.
[2019-04-09] MEDS: PROTONIX IV SCH ×2 (06:09→18:15)
[2019-04-09] MEDS: SODIUM CHLORIDE 0.9% INJ SCH (06:10)
[2019-04-09] MEDS: CLINIMIX E 4.25%-5% SOLUTION 1,000 ML IV SCH ×2 (06:10→18:16)
[2019-04-09] MEDS: DULCOLAX PR SCH ×2 (11:22→21:58)
[2019-04-09] MEDS: FERROUS SULFATE PO SCH (11:27)
[2019-04-09] MEDS: FLEXERIL PO PRN ×2 (11:27→21:54)
[2019-04-09] MEDS: THERA M PLUS PO SCH (11:27)
[2019-04-09] MEDS: ZOLOFT PO SCH (11:27)
--- NOTE | 2019-04-09 12:47 | GASTROENTEROLOGY PROGRESS NOTE ---
DATE: 04/09/2019 SUBJECTIVE: Ms. Valdez is a 49-year-old female sitting in bed. The patient denies any nausea, vomiting. She mentioned having mild generalized abdominal tenderness. The patient is requesting for real food instead of clear liquids. She mentioned tolerating her clear liquids well. The patient has denied any bowel movements. The last 1 she had was on the and had 3 bowel movements that day. OBJECTIVE: Vital Signs: Temperature 98.8 degrees, pulse 81, respirations 18, blood pressure 148/89, oxygen saturation 100% on room air. The patient's weight is 104 pounds. BMI is 17.4 kg General: Alert, oriented x3, and in no acute distress. HEENT: Pale conjunctivae. No icterus. Neck: Supple. Lungs: Clear to auscultation. Cardiovascular: Regular rate and rhythm. Abdomen: Soft, tender, nondistended. Active bowel sounds heard in all 4 quadrants. Extremities: No clubbing, no cyanosis, no edema. Pedal pulses 2+ present bilaterally. Neurological: Alert and oriented x3. LABORATORY DATA: Hematology is from 04/08. WBCs 5.72, RBC 3.48, hemoglobin 8.4, hematocrit is 29.5, platelet count is 455,000. The patient has no new chemistries. IMPRESSION AN PLAN: Gastric outlet obstruction PUD Malnutrition Tobacco abuse PLAN: Ms. Valdez 49-year-old female who has a history of tobacco abuse, hypertension, chronic pain, depression. GI is following her for her intractable nausea, vomiting, weight loss and abdominal pain. The patient currently has denied any nausea or vomiting. She was on a clear liquid diet. Her diet has been advanced to GI soft diet per PCP. The patient had an EGD done on 04/06 and it showed that she had some ulcers, a single ulcer in the gastric antrum, single ulcer in the pylorus and gastric outlet obstruction. The patient's biopsies have been pending. She is currently on Clinimix 75 mL for her nutrition. Patient is on Protonix 40 mg IV twice a day. For her nausea and vomiting she is on Zofran as needed. Surgery is following her. We will continue to monitor the patient and follow the plan of care per PCP and the surgeon. This plan was discussed with Dr. Hayes. Please call us for any further questions or concerns. Dictated by SUZETTE Teran for Jose Hayes MD cc: Jose Hayes MD I have seen and examined the patient myself and I agree with the above plan of care. Please call us with any further questions or concerns. MTDD
--- NOTE | 2019-04-09 15:29 | PROGRESS NOTE ---
DATE: 04/09/2019 I spoke with Ms Valdez. She has gastric outlet obstruction but she is tolerating a soft diet at this time and it would be nice if I could schedule her gastric resection electively when reviewing the operative schedule this week. I feel that if she is able tolerate her diet that we will schedule her surgery as an outpatient. I have discussed this with her. She has spoken about some medication refills. She will certainly need a PPI at discharge for her peptic ulcer disease and I will arrange her surgery. Right now she is tolerating her diet and she is also getting Clinimix for nutrition. She does have severe protein caloric malnutrition and that will increase the risk of her surgery. I do not feel that her symptoms will improve until she has a gastric resection. I hope that we can do a truncal vagotomy with antrectomy and B1 anastomosis. cc: Sheron Gutierres MD
--- NOTE | 2019-04-09 17:19 | PROGRESS NOTE ---
DATE: 04/09/2019 HISTORY: Ms. Valdez is a 49-year-old who had a prior history of hypertension, gastroesophageal reflux disease. She had a right brain aneurysm, status post surgical repair in 2017. She presented to the emergency room with a two-week history of nausea, vomiting, anorexia, black bloody vomitus and stools. PAST MEDICAL HISTORY: 1. Hypertension. 2. Brain aneurysm, status post repair in 2017. 3. Gastroesophageal reflux. PAST SURGICAL HISTORY: Hysterectomy, tonsillectomy, brain surgery, SPRAY GUN STRIPER shunt was placed in 2017. She was pretty sleepy and lethargic through most yesterday. Today she was walking around with the IV pole and feeling better. She was talking about some type of abdominal surgery that she was told she would need. PHYSICAL EXAMINATION: Vital Signs: Today, temperature 98.3 degrees, pulse 88, respirations 16, blood pressure 128/80. Lungs: Clear in all lung king. Cardiovascular: Regular rhythm and rate without murmur or S3. Abdomen: Soft. Skin: Warm and dry. ASSESSMENT AND PLAN: Dr. Gutierres has evaluated. She has gastric outlet obstruction. She is tolerating a soft diet and it would be nice to schedule her gastric resection electively, so we will see how she does with soft diet. Continue the proton pump inhibitor. She is also getting Clinimix. She has lost quite a bit of weight. She has severe protein calorie malnutrition right now, so she is on iron supplement. Hematocrit is [address] Butt did an endoscopy on the of this month. There was a single ulcer measuring 30 mL in size found in the anterior wall of the gastric antrum and then a single ulcer 10 mm in size found in the pylorus. Unable to find the lumen of the pylorus. Concerning for gastric outlet obstruction. So we will continue present orders, Clinimix 75 mL an hour, ferrous sulfate 325 mg daily, Protonix 40 mg IV q.12, Seroquel 300 mg at bedtime, Zoloft 150 mg daily, Protonix 40 mg IV q.12 for right now. cc: Donald James MD
[2019-04-09] MEDS: SEROQUEL PO SCH (21:56)
[2019-04-09] MEDS: MIRAPEX PO SCH (22:27)
[2019-04-10] MEDS: PROTONIX IV SCH ×2 (05:37→23:57)
[2019-04-10] MEDS: CLINIMIX E 4.25%-5% SOLUTION 1,000 ML IV SCH (05:37)
[2019-04-10] MEDS: DULCOLAX PR SCH ×2 (09:10→23:47)
[2019-04-10] MEDS: FERROUS SULFATE PO SCH (09:11)
[2019-04-10] MEDS: THERA M PLUS PO SCH (09:11)
[2019-04-10] MEDS: ZOLOFT PO SCH (09:11)
[2019-04-10] MEDS: ZOFRAN IV PRN (09:11)
--- NOTE | 2019-04-10 11:33 | GASTROENTEROLOGY PROGRESS NOTE ---
DATE: 04/10/2019 SUBJECTIVE: Ms. Valdez is a 49-year-old, female sitting in bed. The patient has denied any nausea, vomiting, or abdominal tenderness but she said that after eating her GI soft diet, she was feeling like she was too full and felt like she was having some discomfort. She has denied having any bowel movements today or yesterday. OBJECTIVE: Vital Signs: Temperature 98.2 degrees, pulse 92, respirations 20, blood pressure 143/76, oxygen saturation 100% on room air. The patient's weight is 104 pounds. BMI is 17.4 kg/m2. General: She is alert, oriented x3, and in no acute distress. HEENT: Pale conjunctivae. No icterus. PERRL. Neck: Supple. Lungs: Clear to auscultation. Cardiovascular: Patient is tachycardic. Abdomen: Soft, nontender, nondistended. Active bowel sounds heard in all 4 quadrants. Extremities: No clubbing, no cyanosis, no edema. Pedal pulses 2+ present bilaterally. Neurologic: She is alert and oriented x3. The patient has no new labs. Her hematology is from 04/08/2019. WBCs 5.72, RBCs 3.48, hemoglobin 8.4, hematocrit is 29.5, platelet count is 455,000. Her chemistries are from 04/07/2019. Sodium is 140, potassium is 4.0, chloride is 107, carbon dioxide 21, anion gap 12, BUN 3, creatinine is 0.5, glucose 86, calcium 9.2, magnesium 2.0. IMPRESSION AND PLAN: 1. Gastric outlet obstruction. 2. Gastric ulcer. 3. Pyloric ulcer 4. Severe protein calorie malnutrition. 5. Tobacco abuse. 6. Nausea and vomiting PLAN: Ms. Valdez is a 49-year-old, female with a history of tobacco abuse, hypertension, chronic pain, and depression who came in with intractable nausea, vomiting, weight loss, and abdominal pain. GI is following her for her nausea and vomiting. Patient's nausea, vomiting and abdominal pain is under control. She had EGD done on 04/06/2019, it showed that she had a single ulcer in the gastric antrum, single ulcer in the pylorus, and the patient had a gastric outlet obstruction. Surgery is following the patient. The patient is currently on a GI soft diet. She was able to tolerate her diet well but after eating her diet, she felt like she was having some discomfort. We have ordered a upper GI series just to rule out gastric outlet obstruction that was seen on the EGD. She is currently on Clinimix at 75 mL per hour for her nutrition. We will continue to monitor the patient and follow the plan of care per PCP. This plan was discussed with Dr. Butt. Please call us for any further questions or concerns. Dictated by SUZETTE Teran for El Butt MD [facility]
--- NOTE | 2019-04-10 19:25 | PROGRESS NOTE ---
DATE: 04/10/2019 SUBJECTIVE: Ms. Valdez says she feels a little better, getting some food down, mainly liquids and she is on a soft diet and she would like to go home tomorrow. She is worried about how she is going to get her medication, so we are going to keep her on proton pump inhibitors. OBJECTIVE: PHYSICAL EXAMINATION: Vital signs: She remains afebrile. Temperature 98.1 degrees, pulse 85, respirations 20, blood pressure 157/71. HEENT: Pupils are equal and round. Lungs: Are clear in all lung king. Cardiovascular: Regular rate without murmur or S3. Input and Output: Urine output is 1800 mL. ASSESSMENT AND PLAN: 1. Gastric outlet obstruction. 2. Gastric ulcer. 3. Pyloric ulcer. 4. Severe protein-calorie malnutrition. 5. Encourage her p.o. intake. She may require surgery for gastric outlet obstruction, but they would like to await until her nutrition is better. So, we will continue to courage her eat. She would like to go home. We will see if we can arrange for high-dose proton pump inhibitors for her to take at home as well and something for her nausea. I will probably have to give her Phenergan suppositories. cc: Donald James MD
[2019-04-10] MEDS: MIRAPEX PO SCH (23:45)
[2019-04-10] MEDS: SEROQUEL PO SCH (23:45)
[2019-04-11] MEDS: CLINIMIX E 4.25%-5% SOLUTION 1,000 ML IV SCH ×3 (03:27→23:00)
[2019-04-11] MEDS: THERA M PLUS PO SCH (09:30)
[2019-04-11] MEDS: ZOLOFT PO SCH (09:30)
[2019-04-11] MEDS: FERROUS SULFATE PO SCH (09:30)
[2019-04-11] MEDS: DULCOLAX PR SCH ×2 (09:32→21:05)
[2019-04-11] MEDS: PROTONIX IV SCH ×2 (09:33→17:13)
--- NOTE | 2019-04-11 10:51 | GASTROENTEROLOGY PROGRESS NOTE ---
DATE: 04/11/2019 SUBJECTIVE: Ms. Vadlez is a 49-year-old female. She just came back from her upper GI series test. The patient has denied any nausea, vomiting, but complaints of abdominal pain in right upper quadrant after she eats. The patient has been having positive bowel movements. OBJECTIVE: Vital Signs: Temperature 98.1 degrees, pulse 90, respirations 20, blood pressure 160/74, oxygen saturation 100% on room air. The patient's weight is 104 pounds. BMI is 17.4 kg/m2. General: She is alert, oriented x3, and in no acute distress. HEENT: Pale conjunctivae. No icterus. PERRL. Neck: Supple. Lungs: Clear to auscultation. Cardiovascular: Regular rate and rhythm. Abdomen: Soft, tender in the right upper quadrant, nondistended. Active bowel sounds heard in all 4 quadrants. Extremities: No clubbing, no cyanosis, no edema. Pedal pulses 2+ present bilaterally. Neurologic: Alert and oriented x3. LABORATORY DATA: The patient has no new labs. Her hematology is from 04/08. WBC 5.72, RBC 3.48, hemoglobin 8.4, hematocrit is 29.5, platelet count is 455. Her chemistries are from 04/07. Sodium 140, potassium 4.0, chloride 107, carbon dioxide 21, anion gap 12. BUN 3, creatinine 0.5, glucose 86, calcium 9.2, magnesium 2.0. UPPER GI SERIES: Prominent gastric ulcer and narrowed pyloric channel with significantly delayed passage of barium through the pylorus. IMPRESSION AND PLAN: Gastric outlet obstruction Gastric ulcer Pyloric ulcer Nausea and vomiting Severe protein calorie malnutrition Tobacco abuse PLAN: Ms. Valdez is a 49-year-old female with a history of tobacco abuse, hypertension, chronic pain and depression. GI has been consulted for intractable nausea, vomiting, weight loss, and abdominal pain. The patient's nausea and vomiting is under control. She is still complaining of abdominal pain after she eats. Her EGD on 04/06 showed she had ulcers in the gastric antrum, pylorus, and gastric outlet obstruction. An upper GI series has revealed prominent gastric ulcer and narrowed pyloric channel with significant delayed passage of barium through the pylorus. Her diet has been changed to full liquids. We will continue to monitor the patient and follow the plan of care. This plan was discussed with Dr. Butt. Please call us for any further questions or concerns. Surgery following. Dictated by SUZETTE Teran for El Butt MD Physician Attestation I have seen and examined the patient. I have discussed and reviewed the note by Giuliana BRADFORD and agree with findings and plan as documented. Continue PPI BID, avoiding NSAIDs. Surgery is planning on surgical intervention as outpatient. Recommend full liquid diet as patient has significant delayed gastric emptying from partial GOO. MTDD
--- NOTE | 2019-04-11 12:08 | Diag Imaging Result Doc PS360 ---
EXAM: GI SERIES PARTIAL INDICATION: r/o gastric outlet obstruction seen on EGD TECHNIQUE: Oral barium contrast was administered under fluoroscopy and spot images of the stomach were obtained. COMPARISON: None. FINDINGS: There is a prominent filling defect at the posterior wall of the distal body of the stomach with central barium pooling. This is consistent with an ulcer with surrounding mucosal edema, which was also seen on a recent EGD. Passage of contrast was witnessed during the pylorus. However, it was very delayed and the pyloric channel appeared to be narrowed suggesting edema. This could be causing partial obstruction. Limited views of the duodenal sweep are unremarkable. IMPRESSION: 1.Prominent gastric ulcer as described. 2.Narrowed pyloric channel with significantly delayed passage of barium through the pylorus. Electronically signed by German Abbott 04/11/2019 12:05 PM
--- NOTE | 2019-04-11 13:49 | PROGRESS NOTE ---
DATE: 04/11/2019 SUBJECTIVE: She feels a little better. She is tolerating soft diet. I think they want to do an upper GI study and just see how well her stomach is emptying. Continue her proton pump inhibitors. OBJECTIVE: Her temperature is 97.9 degrees, pulse 80, respirations 20, blood pressure 155/76. Pupils are equal and round. Lungs are clear in all lung king. Cardiovascular: Regular rate without murmur or S3.Input and Output: Urine output is 1200 mL. ASSESSMENT AND PLAN: 1. The patient's nausea and vomiting under control. Still complains of abdominal discomfort. Esophagogastroduodenoscopy on 04/06 showed she had ulcers in the gastric antrum and pylorus. She had gastric outlet obstruction. 2. Upper GI series is ordered and they are going to look and see how severe the obstruction is. She is able to tolerate her diet, but after she eats she complains of discomfort. cc: Donald James MD
[2019-04-11] MEDS: FLEXERIL PO PRN (21:02)
[2019-04-11] MEDS: MIRAPEX PO SCH (21:03)
[2019-04-11] MEDS: SEROQUEL PO SCH (21:04)
[2019-04-12] MEDS: PROTONIX IV SCH (05:55)
[2019-04-12] MEDS: THERA M PLUS PO SCH (08:33)
[2019-04-12] MEDS: DULCOLAX PR SCH (08:33)
[2019-04-12] MEDS: FERROUS SULFATE PO SCH (08:33)
[2019-04-12] MEDS: ZOLOFT PO SCH (08:33)
[2019-04-12] MEDS: FLEXERIL PO PRN (08:33)
[2019-04-12 11:59] VITALS: BP 138/86
--- NOTE | 2019-04-12 12:15 | GASTROENTEROLOGY PROGRESS NOTE ---
DATE: 04/12/2019 SUBJECTIVE: Ms. Valdez is a 49-year-old, female. She is sitting in bed. She has denied any nausea, vomiting, or abdominal pain, but is complaining about her food. She said she will not be having full liquids. She wants real food. Explained patient the reason why she is on full liquids. Patient is also on ensure. The patient has been having positive bowel movements. OBJECTIVE: Vital Signs: Temperature 97.9 degrees, pulse 87, respirations 19, blood pressure is 145/92, oxygen saturation 100% on room air. The patient's weight is 104 pounds. BMI is 17.4 kg/m2. General: She is alert and oriented x3, and in no acute distress. HEENT: Pale conjunctivae. No icterus. PERRL. Neck: Supple. Lungs: Clear to auscultation. Cardiovascular: Regular rate and rhythm. Abdomen: Soft, nontender, nondistended. Active bowel sounds heard in all 4 quadrants. Extremities: No clubbing, no cyanosis, no edema. Pedal pulses 2+ present bilaterally. Neurologic: Alert and oriented x3. IMAGING AND LABORATORY DATA: The patient has no new labs. Her hematology is from 04/08/2019. WBC 5.72, RBC 3.48, hemoglobin 8.4, hematocrit 29.5, platelet count 455,000. Her chemistries are from 04/07/2019. Sodium 140, potassium 4.0, chloride 107, carbon dioxide 21, anion gap 12, BUN 3, creatinine 0.5, calcium 9.2. Magnesium 2.0. The patient had an upper GI series done yesterday, and it showed prominent gastric ulcer and narrowed pyloric channel with significantly delayed passage of barium throughout the pylorus. IMPRESSION AND PLAN: Anemia Gastric ulcer Gastric outlet obstruction Nausea and vomiting Tobacco abuse PLAN: Ms. Valdez is a 49-year-old, female with a history of tobacco abuse, hypertension, chronic pain, and depression. GI is following her for her intractable nausea and vomiting. Currently, the patient's nausea and vomiting is under control. She has denied any abdominal pain. The patient was started on a GI soft diet, but she did complain about having abdominal discomfort after eating. Upper GI series has shown that she has prominent gastric ulcer and narrowed pyloric channel with significant delayed passage of the barium through the pylorus. We have started her on a full liquid diet. Surgery is following her and plan to do outpatient surgery. She can follow us up as an outpatient in 4 to 6 weeks. She can continue taking multivitamin, iron 1 tab daily, Carafate 1 g every 6 hours and PPI's daily for 3 months. We will continue to monitor the patient, and follow the plan of care per PCP. This plan was discussed with Dr. Hayes. Please call us for any further questions or concerns. Dictated by SUZETTE Teran for Jose Hayes MD cc: Jose Hayes MD I have seen and examined the patient myself and I agree with the above plan of care. Please call us with any questions or concerns. MTDOsbaldo
--- NOTE | 2019-04-12 12:29 | PROGRESS NOTE ---
DATE: 04/12/2019 SUBJECTIVE: I have reviewed her upper GI with Dr. Hicks. I have also spoken with Dr. Butt about his findings with upper endoscopy. She has gastric outlet obstruction probably from chronic peptic ulcer disease. She is able tolerate full liquids. I feel that she will need an antrectomy, truncal vagotomy hopefully with a B1 reconstruction. We spoke about that today. She wants to try to gain some weight and get stronger prior to surgery. She is also missing her family and wants to go home prior to her surgery. I have obtained her cellphone need to follow up with her closely. Either she is able to maintain her calories and get stronger and gain weight or she continues to have symptoms and we need to operate on her sooner rather than later. She is comfortable with this plan and has agreed to follow up with me. cc: Sheron Gutierres MD
--- NOTE | 2019-04-12 13:53 | DISCHARGE SUMMARY ---
ADMISSION DATE: 04/04/2019 DISCHARGE DATE: 04/12/2019 HISTORY OF PRESENT ILLNESS: This is a 49-year-old, history of hypertension, gastroesophageal reflux disease, and right brain aneurysm status post surgical repair in 2017, presented to the emergency room on 04/04/2019 with 2 week history of nausea, vomiting, anorexia. Denied any black or bloody vomitus, stools. PAST MEDICAL HISTORY: 1. Hypertension. 2. Brain aneurysm status post repair in 2017. 3. Gastroesophageal reflux disease. PAST SURGICAL HISTORY: 1. Hysterectomy. 2. Tonsillectomy. 3. Brain surgery with SLEEP TECH shunt placed in 2017. HOSPITAL COURSE: Admitted with what looked like constipation. Given some Dulcolax suppositories and lactulose. She had obvious anemia. She denied any history of black or bloody vomitus, stools. She had epigastric discomfort and postprandial fullness and so GI was consulted, Dr. El Butt, and she was counseled on stopping tobacco. Her EGD was done and it showed a gastric ulcer and ulcer of the pylorus and inability to find the lumen of pylorus consistent with gastric outlet obstruction. She was put on high-dose proton pump inhibitors. Surgery was consulted and she was to tolerate liquids and soft diet. We did an abdominal and pelvic CT, severe diffuse constipation, stable significant wall thickening in the distal stomach most compatible with advanced gastritis, tiny nonobstructing right renal stone. Would like to get her nutrition better and she is tolerating liquids and she would like to wait on the surgery. We did an upper GI series, showed prominent gastric ulcer, narrowed pyloric channel with significantly delayed passage through the pylorus. She would like to go home. She will need some help getting her medication for high-dose proton pump inhibitors. She will follow up with Dr. Gutierres in a couple of weeks and they will follow her nutrition, so we will discharge her home. She will need help with all of her medications. DISCHARGE MEDICATIONS: At present, she is on ferrous sulfate 325 mg a day, multivitamin once a day, Protonix she will take 40 mg p.o. twice a day, Seroquel 300 mg at bedtime, Mirapex 1 mg at bedtime, Zoloft she takes 150 mg daily, and she is on Flexeril 5 mg p.o. b.i.d. p.r.n. cc: Donald James MD
[2019-04-12] MEDS: CLINIMIX E 4.25%-5% SOLUTION 1,000 ML IV SCH (15:49)
[2019-04-12] MEDS ORDERED: CARAFATE LIQUID PO SCH (20:00)
== END 2019-04-12 16:33 | disposition home or self-care (01) | DRG 380 ==
LOC: SUPCPDRO → ED 11:44 → EDIPHOLD 18:55 → SUATTDRO 18:55 → 3N 21:31
PROVIDERS: ATTEND Emergency Medicine

== ENCOUNTER 2019-05-15 10:09 | Inpatient (IN) ==
[2019-05-08 10:01] LABS: BASO# 0.02 X1000 (0.0-0.2); BASO% 0.2 % (0.0-0.8); EOS# 0.11 X1000 (0.0-0.7); EOS% 1.2 % (0.0-10.0); HEMATOCRIT 42.5 % (37.0-47.0); HEMOGLOBIN 12.5 g/dL (12.0-16.0); IMM GRAN# 0.03 X1000 (0.0-0.04); IMM GRAN% 0.3 % (0.0-0.5); LYMPH# 1.97 X1000 (1.2-3.4); MCH 25.2 PG (27-31); MCHC 29.4 g/dL (33-37); MCV 85.7 FL (81-99); MONO# 0.38 X1000 (0.11-0.59); MONO% 4.3 % (1.7-9.3); MPV 9.8 FL (7.4-10.4); NEUT# 6.43 X1000 (1.4-6.5); PLT 378 X1000 (130-400); RBC 4.96 XMIL (4.2-5.4); RDW 19.5 % (11.5-14.5); WBC 8.94 X1000 (4.8-10.8)
[~2019-05-15 10:09] MED LIST: DILAUDID ONE; DIPRIVAN 1% ONE; VERSED ONE
[2019-05-15] MEDS ORDERED: LR 1,000 ML ONE (10:38)
[2019-05-15] MEDS ORDERED: KEFZOL 1 GM/D5W 1 GM/50 ML IVPB ONE (10:38)
[2019-05-15] MEDS ORDERED: MARCAINE 0.25% ONE (11:56)
[2019-05-15] MEDS ORDERED: EXPAREL 1.3% ONE (11:56)
[2019-05-15] MEDS ORDERED: XYLOCAINE-MPF 2% ONE (12:28)
[2019-05-15] MEDS ORDERED: NORCURON ONE (12:28)
[2019-05-15] MEDS ORDERED: QUELICIN (DOSE) ONE (12:28)
[2019-05-15] MEDS ORDERED: ROBINUL ONE ×2 (12:28→15:19)
[2019-05-15] MEDS ORDERED: STERILE WATER INJ. ONE (12:28)
[2019-05-15] MEDS ORDERED: OFIRMEV 1000 MG/ISOTONIC SOLN 1,000 MG/100 ML BOTTLE ONE (12:28)
[2019-05-15] MEDS ORDERED: DECADRON ONE (12:28)
[2019-05-15] MEDS ORDERED: ZOFRAN ONE (12:28)
[2019-05-15 12:59] LABS: URINE SOURCE CATH
[2019-05-15 13:04] LABS: BILIRUBIN URINE NEGATIVE (NEGATIVE); BLOOD URINE NEGATIVE (NEGATIVE); COLOR STRAW; GLUCOSE URINE NEGATIVE (NEGATIVE); KETONE URINE NEGATIVE (NEGATIVE); LEUKOCYTES URINE NEGATIVE (NEGATIVE); NITRITE URINE NEGATIVE (NEGATIVE); PH URINE 5.5; PROTEIN URINE NEGATIVE (NEGATIVE); TURBIDITY URINE CLEAR (CLEAR); UROBILINOGEN URINE NORMAL (NORMAL)
[2019-05-15 13:06] LABS: UR EPITHELIAL CELLS <10 /HPF (<10); URINE BACTERIA NEGATIVE /HPF; URINE RBC <10 /HPF (<10); URINE WBC <10 /HPF (<10)
[2019-05-15] MEDS ORDERED: NEOSTIGMINE ONE (15:40)
[2019-05-15] MEDS ORDERED: SODIUM CHLORIDE 0.9% INJ PRN (16:30)
[2019-05-15] MEDS: OFIRMEV 1000 MG/ISOTONIC SOLN 1,000 MG/100 ML BOTTLE IV SCH ×2 (17:28→23:05)
[2019-05-15] MEDS: LR 1,000 ML IV SCH (17:28)
[2019-05-15] MEDS: MORPHINE IV PRN ×2 (18:53→23:06)
--- NOTE | 2019-05-15 19:08 | OPERATIVE NOTE ---
PROCEDURE DATE: 05/15/2019 PREOPERATIVE DIAGNOSES: 1. Gastric ulcer. 2. Deformed pylorus and stenosis proximal duodenum. 3. Gastric outlet obstruction. POSTOPERATIVE DIAGNOSES: 1. Gastric ulcer. 2. Deformed pylorus and stenosis proximal duodenum. 3. Gastric outlet obstruction. PRINCIPAL PROCEDURE: 1. Truncal vagotomy. 2. Antrectomy with Zoe-en-Y gastrojejunostomy. SURGEON: Sheron Gutierres MD. COLLECTIONS REP: Dr. Cyrus Grove and Ramiro Pearce MD, third year general surgery resident [facility]. ANESTHESIA: General in addition to a TAP block. ESTIMATED BLOOD LOSS: 100 mL. DRAINS: None. INDICATIONS: Ms. Magy Valdez is a 49-year-old white female who has a history of neurosurgery. She was recently admitted with nausea and vomiting and underwent upper endoscopy per Dr. Butt which suggested 2 separate gastric ulcers distally in her stomach and gastric outlet obstruction. She was able to tolerate liquids. She was discharged. I followed her as an outpatient. We felt we should proceed with truncal vagotomy, antrectomy with reconstruction for her gastric outlet obstruction which we feel is secondary to peptic ulcer disease. She has had a CT scan, upper endoscopy, and upper GI; all were reviewed prior to surgery. FINDINGS: She had an enlarged stomach but it was mostly empty. She had a stenosis just past the pylorus within the 1st portion of the duodenum which we were able to mobilize and resect. We resected the antrum, all the duodenal bulb and the duodenum with this stricture. We felt the stricture was benign. Because the amount of the duodenal, we did resect we felt a B1 anastomosis was not practical and we performed a Zoe-en-Y gastrojejunostomy. No other intra-abdominal pathology was noted. We felt we did this operation safely. DESCRIPTION OF PROCEDURE: The patient was brought to the operating room, placed supine, received general anesthesia, was intubated. Herrera catheter tube was placed. A tap block was placed by anesthesia. Her abdomen was prepped and draped within a sterile field. I used an Ioban on the skin. We used the upper hand retractor and Doddridge. An upper midline incision was made using a 10 blade scalpel. The cautery was used to transect the soft tissue in the midline fascia and the abdomen was carefully entered. We got exposure and mobilized the lateral left lobe of the liver by incising its ligament posteriorly and this allowed us to get up to the esophagus. The patient was in slight reverse Trendelenburg. At the caudate lobe, I incised the gastrohepatic ligament using cautery towards the esophagus. I also incised the peritoneum overlying the esophagus at the angle of His. I used my index finger and got around the esophagus bluntly. We identified the posterior trunk of the vagus nerve and I took a section of the vagus nerve at least 2 to 4 cm in length. Clips were placed on either side at the transection of this nerve. It was sent to the pathologist for frozen section. We identified the anterior vagus nerve within the longitudinal muscle of the esophagus and again a 4 cm segment of this nerve was removed between clips and sent to the pathologist for frozen section. The pathologist reported that both specimens sent were consistent with vagus nerve. The abdominal esophagus was skeletonized of all soft tissue completely. We then directed our attention to the antrectomy. We took about 40% of the stomach. At the greater curve the blood supply was taken right along the greater curve of the stomach. We used the LigaSure to do that. We began about 60% of the way down the greater curvature and extended it towards the pylorus. We then mobilized the gastrohepatic ligament and the lesser curve from proximal to distal. We dissected about 1 to 2 cm above the angularis of the lesser curve of the stomach and proceeded toward the pylorus using the LigaSure. I then divided the antrum at the body antrum junction. I used a bowel clamp and then a TA 45 green load stapler to transect the stomach and then I used the antrum as a handle to further dissect posteriorly along the pylorus and the 1st part of the duodenal past this palpable stenosis. Care was taken to stay right on the posterior aspect of the duodenum so that the common bile duct was not injured. We came across the appendiceal stump with a TA blue load 30 stapler. The specimen was removed and we decided we could not do a B1 anastomosis despite doing a Jenny maneuver and decided on a Zoe-en- Y gastrojejunostomy. We divided the duodenum past the ligament of Treitz and then brought up at least 30 cm in length Zoe limb retrocolic and performed an end stomach to side Zoe-en-Y gastrojejunostomy. This was a double layer sewn anastomosis. The posterior layer was interrupted 2-0 silk stitches reinforced with double-armed 3-0 Vicryl stitch which was continued on the anterior wall as a Teodoro stitch and then I finished the anterior wall with interrupted 2-0 silk Lembert stitches. It must be noted that I reinforced the staple line on this Zoe limb. I reinforced the staple line of the cut duodenum and I reinforced the staple line of the lesser curve of the stomach with interrupted 2-0 and 3-0 silk stitches. We then sewed the proximal jejunum to the jejunal anastomosis and again double layered end-to-side anastomosis between the proximal jejunum and the mid jejunum. This finished our Zoe Y limb and again this anastomosis was done in 2 layers. We took time to be sure that all the created defects in the mesentery were closed. We also secured the mesocolon to the Zoe limb that went retrocolic. At our Zoe-en-Y distal anastomosis we made sure that the mesentery was closed with interrupted silk stitches. We thoroughly irrigated the abdomen with warm saline. The irrigation was removed with suction. The bowel was placed back in its anatomically correct position. She does have a CAR GROOMER shunt in place and we made sure that stayed down in the pelvis. We closed the midline incision in layers. The first layer was the peritoneum with a running 0 Vicryl stitch. The 2nd layer was the fascia with a running #1 Maxon stitch. Again, the midline wound was irrigated and the skin was closed with a skin clip pipeline maintenance supervisor. Dressings were applied. Plans are for her NG tube to remain in place in addition to her Herrera catheter tube. She will go to the recovery room and then to a room on the floor. Dr. Cyrus Grove was present throughout the case. His presence was necessary for help with exposure, decision making and sewing our anastomoses. cc: Sheron Gutierres MD [facility]
[2019-05-15] MEDS: PHENERGAN IV PRN (23:08)
[2019-05-16] MEDS: LR 1,000 ML IV SCH (02:25)
[2019-05-16] MEDS: MORPHINE IV PRN ×5 (03:51→21:30)
[2019-05-16] MEDS: OFIRMEV 1000 MG/ISOTONIC SOLN 1,000 MG/100 ML BOTTLE IV SCH ×4 (06:00→23:35)
[2019-05-16] MEDS: LOVENOX SUBQ SCH (06:00)
[2019-05-16] MEDS: NORVASC PO SCH (10:38)
[2019-05-16] MEDS: D5 1/2 NS + KCL 20 MEQ 1,000 ML IV SCH (13:43)
[2019-05-16] MEDS ORDERED: ATIVAN IV PRN (17:10)
--- NOTE | 2019-05-16 17:52 | PROGRESS NOTE ---
DATE: 05/16/2019 SUBJECTIVE: Ms Magy Valdez is now postop day 1 from a truncal vagotomy, antrectomy with Zoe-en- Y gastrojejunostomy for peptic ulcer disease and gastric outlet obstruction. We felt the surgery went well. She has already pulled her NG tube out. We will leave it out. She is asking for liquids but we were going to keep her on ice chips for now. We will change her IV fluids to D5 and half with 20 of K. She is awake and cooperative. Will DC her Herrera because she is active in the room. Her heart rate is 77, 107, blood pressure 154/102, O2 saturation 95%. T-max is 99.4 degrees. cc: Sheron Gutierres MD
[2019-05-16] MEDS: MIRAPEX PO SCH (21:23)
[2019-05-16] MEDS: SEROQUEL PO SCH (21:24)
[2019-05-16] MEDS: PHENERGAN IV PRN (21:25)
[2019-05-16] MEDS: PERIDEX MT SCH (21:25)
[2019-05-17] MEDS: MORPHINE IV PRN ×4 (03:39→18:07)
[2019-05-17] MEDS: D5 1/2 NS + KCL 20 MEQ 1,000 ML IV SCH ×2 (03:39→17:24)
[2019-05-17] MEDS: LOVENOX SUBQ SCH (05:44)
[2019-05-17] MEDS: OFIRMEV 1000 MG/ISOTONIC SOLN 1,000 MG/100 ML BOTTLE IV SCH ×4 (05:44→20:54)
[2019-05-17] MEDS: PERIDEX MT SCH ×2 (08:30→20:54)
[2019-05-17] MEDS: ZOLOFT PO SCH (08:30)
[2019-05-17] MEDS: NORVASC PO SCH (08:30)
--- NOTE | 2019-05-17 18:50 | PROGRESS NOTE ---
DATE: 05/17/2019 Ms. Magy Valdez is a 49-year-old white female, now postop day 2 from an antrectomy, truncal vagotomy with the Zoe-en-Y anastomosis. She has done very well. Postoperatively, she is good about getting up. We removed her Herrera today. She is voiding without difficulty. She has tolerated liquids. Her abdomen is slightly distended but overall she looks good. We will advance her diet to a full liquid diet. Her heart rate is 106 to 120 blood pressure 101/72, O2 saturation 96%. She is afebrile on no antibiotics. Will draw some labs on her tomorrow. cc: Sheron Gutierres MD
[2019-05-17] MEDS: MIRAPEX PO SCH (20:54)
[2019-05-17] MEDS: SEROQUEL PO SCH (20:54)
[2019-05-17] MEDS ORDERED: NICODERM PATCH TD PRN (21:08)
[2019-05-18] MEDS: OFIRMEV 1000 MG/ISOTONIC SOLN 1,000 MG/100 ML BOTTLE IV SCH ×3 (01:09→12:05)
[2019-05-18] MEDS: MORPHINE IV PRN ×3 (02:09→11:09)
[2019-05-18] MEDS: LOVENOX SUBQ SCH (05:45)
[2019-05-18] MEDS: D5 1/2 NS + KCL 20 MEQ 1,000 ML IV SCH (06:39)
[2019-05-18 07:53] LABS: AGAP 13; BUN 5 mg/dL (8-22); CHLORIDE 104 mmol/L (98-107); COSMO 278; CREATININE 0.4 mg/dL (0.5-0.9); ESTIMATED GFR > 60; GLUCOSE 89 mg/dL (70-104); POTASSIUM 3.4 mmol/L (3.5-5.1); SODIUM 141 mmol/L (136-145); TCO2 24 mmol/L (25-35)
[2019-05-18 08:28] LABS: BASO# 0.01 X1000 (0.0-0.2); BASO% 0.1 % (0.0-0.8); EOS# 0.31 X1000 (0.0-0.7); HEMOGLOBIN 9.2 g/dL (12.0-16.0); LYMPH# 0.83 X1000 (1.2-3.4); LYMPH% 10.7 % (20.5-51.1); MCH 25.3 PG (27-31); MCHC 29.7 g/dL (33-37); MCV 85.2 FL (81-99); MONO# 0.41 X1000 (0.11-0.59); MONO% 5.3 % (1.7-9.3); MPV 10.3 FL (7.4-10.4); NEUT# 6.21 X1000 (1.4-6.5); NEUT% 79.9 % (42.2-75.2); PLT 250 X1000 (130-400); RBC 3.64 XMIL (4.2-5.4); RDW 20.2 % (11.5-14.5); WBC 7.77 X1000 (4.8-10.8)
[2019-05-18] MEDS: NORVASC PO SCH (09:31)
[2019-05-18] MEDS: PERIDEX MT SCH ×2 (09:31→20:28)
[2019-05-18] MEDS: ZOLOFT PO SCH (09:31)
[2019-05-18] MEDS: NORCO-7.5 PO PRN (17:09)
--- NOTE | 2019-05-18 18:29 | PROGRESS NOTE ---
DATE: 05/18/2019 Ms Magy Valdez is a 49-year-old white female who is now postop day 3 from an antrectomy, truncal vagotomy with Zoe-en-Y reconstruction. She is on full liquids. She seems to be tolerating those well. Her white blood cell count is normal. Hematocrit is 31%. Electrolytes are within normal limits. Her heart rate is 108, blood pressure 119/72, O2 saturation 94%. She is afebrile. She is voiding without a Herrera. Her wound is dressed. Overall, I think she is doing well after surgery. Dr. Elena is on for us this weekend. I think that her diet will probably be advanced. cc: Sheron Gutierres MD
[2019-05-18] MEDS: MIRAPEX PO SCH (20:28)
[2019-05-18] MEDS: SEROQUEL PO SCH (20:28)
[2019-05-19] MEDS: NORCO-7.5 PO PRN ×3 (03:54→16:14)
[2019-05-19] MEDS: D5 1/2 NS + KCL 20 MEQ 1,000 ML IV SCH (03:54)
[2019-05-19] MEDS: LOVENOX SUBQ SCH (05:08)
[2019-05-19] MEDS: NORVASC PO SCH (08:21)
[2019-05-19] MEDS: PERIDEX MT SCH ×2 (08:21→20:05)
[2019-05-19] MEDS: ZOLOFT PO SCH (08:22)
[2019-05-19] MEDS ORDERED: DUONEB (A & A) INH PRN (08:39)
[2019-05-19 09:06] LABS: ALLEN TEST YES; BE -0.3 mmoll (-3.0-3.0); BLOOD TYPE ARTERIAL; HCO3-(ACT) 24.5 mmoll (20.0-26.0); METHB 1.2 % (0.0-1.5); O2(CT) 7.4 mL/dL (15.0-23.0); PCO2(98.6) 31 mmHg (35-45); SAMPLE BLOOD; SAO2 83.5 % (95.0-100.0); THB 6.4 g/dL (11.5-17.4); pH(98.6) 7.48 (7.35-7.45)
[2019-05-19 09:10] LABS: MODALITY ROOM AIR; O2HB 81.2 % (95.0-99.0); PO2(98.6) 41 mmHg (60-100)
--- NOTE | 2019-05-19 09:41 | Diag Imaging Result Doc PS360 ---
EXAM: CHEST-PORTABLE 05/19/2019 HISTORY: sob TECHNIQUE: AP portable at 0847 COMMENT: The inspiration is suboptimal. There are patchy opacities present bilaterally, particularly in the right upper lobe. There is a calcified granuloma in the left upper lobe. The heart size and pulmonary vascularity are within normal limits. IMPRESSION: Bronchopneumonia. Electronically signed by Jose Guadalupe Hicks 05/19/2019 9:39 AM
--- NOTE | 2019-05-19 10:50 | Diag Imaging Result Doc PS360 ---
EXAM: CT ANGIOGRAM PULMONARY ARTERIES - 05/19/2019 HISTORY: Hypoxemia, SOB TECHNIQUE: CT angiogram pulmonary arteries with intravenous contrast. Axial, coronal, and 3-D MIP images are obtained. COMPARISON: 05/18/2018 chest radiograph FINDINGS: There are no filling defects identified in the pulmonary arteries. There is no indication of aortic dissection. There are multilobar patchy bilateral infiltrates. There is atelectasis of the bilateral lung bases, most prominent on the right. There is no pleural effusion or pneumothorax identified. The visualized stomach in the upper abdomen is noted to be distended with fluid and debris. IMPRESSION: No evidence of pulmonary embolism. Patchy bilateral infiltrates. Atelectasis at bilateral lung bases. Distended stomach. Electronically signed by Ochoa Humphrey 05/19/2019 10:47 AM
[2019-05-19] MEDS: ZOSYN 3.375 GM in NS 50 ML IV SCH ×4 (11:32→23:09)
--- NOTE | 2019-05-19 13:33 | GENERAL SURGERY PROGRESS NOTE ---
DATE: 05/19/2019 SUBJECTIVE: Ms. Valdez is complain of shortness of breath this morning. She apparently does use an inhaler at home. Her breath sounds are distant. She is tachycardic. OBJECTIVE: Vital Signs: She is afebrile. Blood pressure is 117/81. Her O2 saturation is 94. PLAN: The plan will be to get a chest x-ray on her, get some blood gases on her. We will start her on a bronchodilator. She is on subcutaneous Lovenox. cc: MD Sheron Corrales MD
[2019-05-19] MEDS: SEROQUEL PO SCH (20:04)
[2019-05-19] MEDS: MIRAPEX PO SCH (20:05)
[2019-05-20] MEDS: ZOSYN 3.375 GM in NS 50 ML IV SCH ×5 (04:28→19:58)
[2019-05-20] MEDS: D5 1/2 NS + KCL 20 MEQ 1,000 ML IV SCH ×3 (04:28→12:02)
[2019-05-20] MEDS: LOVENOX SUBQ SCH ×2 (04:29→07:26)
[2019-05-20] MEDS: NORCO-7.5 PO PRN ×4 (04:43→18:44)
--- NOTE | 2019-05-20 08:50 | GENERAL SURGERY PROGRESS NOTE ---
DATE: 05/20/2019 She is afebrile, heart rate 122, blood pressure 105/79. She still has rhonchi bilaterally. She is somewhat tight. She is breathing better today than yesterday, however. She says she is passing some flatus. We will need to be sure that she is getting scheduled bronchodilator therapy. cc: MD Sheron Corrales MD
[2019-05-20] MEDS: NORVASC PO SCH (09:30)
[2019-05-20] MEDS: ZOLOFT PO SCH (09:30)
[2019-05-20] MEDS: PERIDEX MT SCH ×2 (09:31→19:59)
[2019-05-20] MEDS: DUONEB (A & A) INH SCH ×3 (09:49→20:16)
[2019-05-20 12:35] LABS: BASO# 0.02 X1000 (0.0-0.2); BASO% 0.2 % (0.0-0.8); EOS# 0.28 X1000 (0.0-0.7); EOS% 2.5 % (0.0-10.0); HEMATOCRIT 26.4 % (37.0-47.0); HEMOGLOBIN 8.1 g/dL (12.0-16.0); LYMPH# 1.06 X1000 (1.2-3.4); LYMPH% 9.6 % (20.5-51.1); MCHC 30.7 g/dL (33-37); MCV 84.9 FL (81-99); MONO% 4.5 % (1.7-9.3); MPV 9.4 FL (7.4-10.4); NEUT# 9.17 X1000 (1.4-6.5); NEUT% 83.2 % (42.2-75.2); PLT 258 X1000 (130-400); RBC 3.11 XMIL (4.2-5.4); RDW 20.2 % (11.5-14.5); WBC 11.03 X1000 (4.8-10.8)
[2019-05-20 12:44] LABS: INR 1.26
[2019-05-20 12:57] LABS: AGAP 12; ALB/GLOB RATIO 1.5; ALBUMIN 2.9 g/dL (3.5-5.0); ALKALINE PHOSPHATASE 182 U/L (32-104); BUN 5 mg/dL (8-22); CALCIUM 8.2 mg/dL (8.8-10.2); CHLORIDE 105 mmol/L (98-107); CK PROFILE 42 U/L (24-173); COSMO 276; CREATININE 0.4 mg/dL (0.5-0.9); ESTIMATED GFR > 60; GLUCOSE 91 mg/dL (70-104); GOT 13 U/L (10-30); GPT 17 U/L (10-36); POTASSIUM 3.4 mmol/L (3.5-5.1); SODIUM 140 mmol/L (136-145); TCO2 23 mmol/L (25-35); TOTAL BILIRUBIN 0.33 mg/dL (0.20-1.00); TOTAL PROTEIN 4.9 g/dL (6.3-8.3)
[2019-05-20] MEDS: SEROQUEL PO SCH (19:58)
[2019-05-20] MEDS: MIRAPEX PO SCH (19:59)
[2019-05-20 21:51] LABS: URINE SOURCE CLEAN CATCH
[2019-05-20 21:55] LABS: BILIRUBIN URINE NEGATIVE (NEGATIVE); BLOOD URINE NEGATIVE (NEGATIVE); COLOR YELLOW; GLUCOSE URINE NEGATIVE (NEGATIVE); KETONE URINE NEGATIVE (NEGATIVE); LEUKOCYTES URINE NEGATIVE (NEGATIVE); NITRITE URINE NEGATIVE (NEGATIVE); PH URINE 6.5; PROTEIN URINE NEGATIVE (NEGATIVE); TURBIDITY URINE CLEAR (CLEAR); UROBILINOGEN URINE NORMAL (NORMAL)
[2019-05-20 21:57] LABS: UR EPITHELIAL CELLS <10 /HPF (<10); URINE BACTERIA NEGATIVE /HPF; URINE RBC <10 /HPF (<10); URINE WBC <10 /HPF (<10)
[2019-05-21] MEDS: ZOSYN 3.375 GM in NS 50 ML IV SCH ×5 (00:44→20:20)
[2019-05-21] MEDS: NORCO-7.5 PO PRN ×3 (00:48→15:23)
[2019-05-21] MEDS: DUONEB (A & A) INH SCH ×4 (03:26→20:34)
[2019-05-21] MEDS: D5 1/2 NS + KCL 20 MEQ 1,000 ML IV SCH (04:40)
[2019-05-21] MEDS: LOVENOX SUBQ SCH ×2 (04:41→05:00)
--- NOTE | 2019-05-21 07:32 | Diag Imaging Result Doc PS360 ---
EXAM: CHEST-2 VIEWS INDICATION: pneumonia TECHNIQUE: 2 views COMPARISON: 05/19/2019 FINDINGS: There is increasing opacity in the right middle and right lower lobe suggesting worsening atelectasis and infiltrate. The more vague airspace opacity in the right upper lobe is essentially stable given differences in technique. No new consolidation is identified on the left. Cardiac silhouette is stable. IMPRESSION: Interval worsening of atelectasis and consolidation at the right lung base. Electronically signed by German Abbott 05/21/2019 7:30 AM
[2019-05-21] MEDS: ZOLOFT PO SCH (10:51)
[2019-05-21] MEDS: NORVASC PO SCH (10:52)
[2019-05-21] MEDS: PERIDEX MT SCH ×2 (10:52→20:19)
--- NOTE | 2019-05-21 19:55 | PROGRESS NOTE ---
DATE: 05/21/2019 SUBJECTIVE: Ms. Valdez is status post antrectomy and truncal vagotomy with Zoe-en-Y reconstruction. She is now postop day 6 from this surgery. She is tolerating a regular diet, but evidently she had some shortness of breath over the weekend and is getting breathing treatments. Her chest x-ray showed interval worsening of atelectasis in the right lung base. She did not seem short of breath when I saw her in her room. OBJECTIVE: Her heart rate is 90, blood pressure 113/79, O2 saturation 97%. She is afebrile. She is voiding without a Herrera. She is eating a regular diet. Her white blood cell count is slightly elevated at 11. Her hematocrit is 26%. She is still on IV Zosyn. BUN and creatinine are 5 and 0.4. ASSESSMENT: I think she is doing well from her gastric surgery. She is having some slow gastric emptying because on abdominal film her stomach is enlarged. She has had some shortness of breath, but did not appear to be short of breath when I saw her. She is on breathing treatments. She has been good about moving around the room. Her incision is healing without complication. PLAN: We will monitor her pulmonary function and chest x-ray. We will see how she tolerates a diet. She may need 6 small meals a day. Her white blood cell count needs to trend toward normal. We still have her on intravenous Zosyn. cc: Sheron Gutierres MD
[2019-05-21] MEDS: SEROQUEL PO SCH (20:19)
[2019-05-21] MEDS: MIRAPEX PO SCH (20:19)
[2019-05-22] MEDS: ZOSYN 3.375 GM in NS 50 ML IV SCH ×2 (00:48→04:45)
[2019-05-22] MEDS: NORCO-7.5 PO PRN ×4 (01:55→20:14)
[2019-05-22] MEDS: DUONEB (A & A) INH SCH ×4 (03:43→21:00)
[2019-05-22] MEDS: LOVENOX SUBQ SCH (04:46)
--- NOTE | 2019-05-22 08:42 | PROGRESS NOTE ---
DATE: 05/22/2019 SUBJECTIVE: Ms. Magy Valdez is status post truncal vagotomy, antrectomy, with Zoe-en-Y anastomosis. Postoperatively, I think she has done well. Over the weekend, she had some breathing issue and was started on breathing treatments. She is a chronic smoker and has COPD. She has mild work of breathing. Will repeat a chest x-ray today, get another CBC. She has been on IV Zosyn. Her upper midline incision is healing well. She is tolerating a diet. Her heart rate is 99, blood pressure 120/84, O2 saturation 97%, with a low-grade temperature of 99.1 degrees. She is having bowel activity. PLAN: Will repeat her chest x-ray. Will also get a CBC. If those are improved, will look to send her home. cc: Sheron Gutierres MD
--- NOTE | 2019-05-22 09:08 | Diag Imaging Result Doc PS360 ---
EXAM: CHEST-2 VIEWS HISTORY: ? pneumonia. TECHNIQUE: Two views COMPARISON: 05/21/2019 FINDINGS: There are basilar infiltrates and atelectasis. Findings are slightly more prominent on the current exam. No cardiomegaly. No pulmonary edema. There is a right-sided ventriculoperitoneal shunt and there are skin michele in the mid line of the abdomen. IMPRESSION: Worsening basilar infiltrates and atelectasis Electronically signed by Syed Patton 05/22/2019 9:06 AM
[2019-05-22] MEDS: ZOLOFT PO SCH (09:16)
[2019-05-22] MEDS: PERIDEX MT SCH ×2 (09:16→20:14)
[2019-05-22] MEDS: NORVASC PO SCH (09:16)
[2019-05-22 10:10] LABS: BASO# 0.02 X1000 (0.0-0.2); BASO% 0.3 % (0.0-0.8); EOS# 0.43 X1000 (0.0-0.7); EOS% 5.7 % (0.0-10.0); HEMATOCRIT 26.9 % (37.0-47.0); HEMOGLOBIN 8.1 g/dL (12.0-16.0); IMM GRAN# 0.03 X1000 (0.0-0.04); IMM GRAN% 0.4 % (0.0-0.5); LYMPH# 0.75 X1000 (1.2-3.4); MCH 25.6 PG (27-31); MCHC 30.1 g/dL (33-37); MCV 84.9 FL (81-99); MONO# 0.43 X1000 (0.11-0.59); MONO% 5.7 % (1.7-9.3); MPV 9.7 FL (7.4-10.4); NEUT# 5.84 X1000 (1.4-6.5); NEUT% 77.9 % (42.2-75.2); PLT 355 X1000 (130-400); RBC 3.17 XMIL (4.2-5.4); RDW 19.8 % (11.5-14.5)
[2019-05-22 10:41] LABS: T4 4.69 ug/dL (4.60-12.00)
[2019-05-22 10:53] LABS: TSH 8.83 uIUmL (0.27-4.20)
[2019-05-22] MEDS: MIRAPEX PO SCH (20:13)
[2019-05-22] MEDS: SEROQUEL PO SCH (20:14)
[2019-05-23] MEDS: LOVENOX SUBQ SCH ×2 (01:24→06:26)
[2019-05-23] MEDS: DUONEB (A & A) INH SCH ×4 (04:10→20:08)
[2019-05-23] MEDS: NORCO-7.5 PO PRN ×4 (06:26→22:36)
[2019-05-23] MEDS: ZOLOFT PO SCH (08:30)
[2019-05-23] MEDS: PERIDEX MT SCH ×2 (08:30→22:36)
[2019-05-23] MEDS: NORVASC PO SCH (08:30)
--- NOTE | 2019-05-23 08:44 | PROGRESS NOTE ---
DATE: 05/23/2019 SUBJECTIVE: Ms. Valdez is status post truncal vagotomy, antrectomy with a Zoe-en-Y reconstruction. Her postoperative convalescence has been good except she has developed some atelectasis involving the right lower lobe, and on x-ray her stomach is distended. I do not think she is emptying her stomach normally, but that is not unusual after truncal vagotomy. She has got to eat small meals. I have kept her hospitalized in concern of her pulmonary function. She is sleeping this morning. OBJECTIVE: Her heart rate is 87, blood pressure 120/78, and O2 saturation 98%. She is afebrile. Her O2 saturation recorded yesterday was 94%. This morning is 98% and that is on 2 liters nasal cannula according to her chart. She is eating about 75% of her meals. She had a bowel movement 2 days ago. We stopped her IV Zosyn. IMAGING STUDIES: Her latest chest x-ray was yesterday, which documented basilar infiltrates and atelectasis. PLAN: We will see how she does, how she feels today, and her pulmonary function before deciding to discharge her home. cc: Sheron Gutierres MD
[2019-05-23] MEDS: SEROQUEL PO SCH (22:36)
[2019-05-23] MEDS: MIRAPEX PO SCH (22:37)
[2019-05-24] MEDS: DUONEB (A & A) INH SCH ×2 (03:50→08:01)
[2019-05-24] MEDS: LOVENOX SUBQ SCH (06:52)
[2019-05-24] MEDS: NORCO-7.5 PO PRN ×2 (06:52→11:51)
--- NOTE | 2019-05-24 08:49 | DISCHARGE SUMMARY ---
ADMISSION DATE: 05/15/2019 DISCHARGE DATE: 05/24/2019 ADMITTING DIAGNOSIS: Gastric outlet obstruction. DISCHARGE DIAGNOSIS: Gastric outlet obstruction. PRINCIPAL PROCEDURE: Truncal vagotomy, antrectomy with Zoe-en-Y reconstruction on 05/15/2019. DISCHARGE DISABILITIES: Full. DISCHARGE DISPOSITION: She will return to our outpatient offices in 2 weeks. DISCHARGE MEDICATIONS: She is to return to her home medications. HOSPITAL COURSE: Ms. Magy Valdez is a 49-year-old white female, who is a smoker, who has had a history of peptic ulcer disease. She is admitted earlier in the year to [facility] with nausea and vomiting. Dr. Butt, our film replacement orderer, performed upper endoscopy which suggested gastric outlet obstruction and it was felt related to peptic ulcer disease. I have followed her as an outpatient, and we decided to perform a truncal vagotomy, antrectomy. She was admitted on the day of surgery. We were unable to do a B1 anastomosis because she had another stricture farther down in the duodenum. We were able to resect not only the gastric outlet obstruction but this circular stricture lower down in the duodenum without injuring the common bile duct. We performed a Zoe-en-Y reconstruction. Her postoperative convalescence was satisfactory. One complication was atelectasis involving the right lower lobe and some pulmonary dysfunction. We treated that with maximum pulmonary physiotherapy, and her O2 saturation at discharge was 96% on room air. Her upper midline incision was healing well. Her stomach is large on x-ray but seemed to be emptying. It was felt that she needs to eat multiple small meals instead of 3 larger meals. At discharge, she was ambulating in the halls. She was afebrile. Her heart rate was 87 to 98 and O2 saturation 92% to 99%. Her last white blood cell count was on 05/22/2019, and it was normal. Hematocrit was 27%. Chest x-ray showed atelectasis. She is anxious to go home under the care of her family with a followup in my outpatient offices in 2 weeks. She will return to her home medications and knows to call me with any problems. cc: Sheron Gutierres MD
[2019-05-24] MEDS: ZOLOFT PO SCH (09:47)
[2019-05-24] MEDS: PERIDEX MT SCH (09:48)
[2019-05-24] MEDS: NORVASC PO SCH (09:48)
[2019-05-24 13:26] VITALS: BP 125/92
== END 2019-05-24 13:27 | disposition home or self-care (01) | DRG 327 ==
LOC: SURHOLD 10:09 → 4N 12:21
PROVIDERS: ADMIT Surgery; ATTEND Surgery